=== PATIENT | male | born 1940 | race Hispanic/Latino ===

== ENCOUNTER 2016-08-26 10:10 | Emergency (ER) | payer MEDICAID, MEDICARE, OTHER ==
[~2016-08-26] VITALS: Ht 172.7 cm; Wt 72.6 kg
[~2016-08-26 10:10] MED LIST: AMLODIPINE BESYL5 MG GT; ARICEPT10 MG GT; ATORVASTATIN CA20 MG GT; CARBIDOPA-LEVO1 EAC3 GT; CARVEDILOL3.125 MG GT; CIPROFLOXACIN500 M2 ORAL; INSULIN REGULAR; LISINOPRIL2.5 MG GT; MULTI-DELYN237 ML GT; NAMENDA10 MG GT; ROPINIROLE HCL1 MG GT
[2016-08-26 10:24] VITALS: BP 123/80
--- NOTE | 2016-08-26 12:06 | Emergency Room Report ---
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 There is no knowledge of the size of the feeding tube A note regarding any fall or trauma patient himself is chronically debilitated and the history of present illness is significantly limited Allergies: Coded Allergies: No Known Allergies (Unverified , 04/04/14) Patient History Limited by: medical condition Past Medical History: see triage record Pertinent Family History: unable to obtain Reviewed Nursing Documentation: PMH: Agreed, PSxH: Agreed Nursing Documentation-PMH Past Medical History: No History, Except For Hx Cardiac Problems: Yes - chf,paralysis agitans,afib, bph Hx Hypertension: Yes Hx Diabetes: Yes Review of Systems All Other Systems: limited - Other than the ones mentioned in the history of present illness all others are reviewed however they do stay limited due to the patient's mental status Physical Exam Vital Signs Date Time Temp Pulse Resp B/P Pulse Ox O2 Delivery O2 Flow Rate FiO2 08/26/16 10:11 98.2 80 16 123/80 98 Room Air Sp02 EP Interpretation: reviewed, normal General Appearance: no apparent distress Head: normocephalic, atraumatic Eyes: bilateral eye PERRL ENT: normal pharynx Neck: supple Respiratory: lungs clear Cardiovascular #1: regular rate, rhythm, no edema Gastrointestinal: other - Stoma present mid abdomen, mild blood is noted at the site no obvious active bleeding no other fluctuance Musculoskeletal: other - Patient chronically debilitated now moving extremities Neurologic: responsive - to physical stimuli Skin: other - skin breakdown Medical Decision Making Diagnostic Impression: Primary Impression: Malfunction of gastrostomy tube Additional Impression: Encounter for feeding tube placement ER Course The area was cleansed 16 Argentine feeding tube was placed through the stoma without any resistance Was a small amount of blood that was wiped off No signs of any active bleeding Patient had balloon inflated and is tolerating procedure well At this time KUB gastrografin confirms placement and patient stable for discharge back Last Vital Signs Date Time Temp Pulse Resp B/P Pulse Ox O2 Delivery O2 Flow Rate FiO2 08/26/16 10:24 98.2 78 16 123/80 98 Room Air Status: improved Disposition: XFER SNF Condition: Improved Referrals: [facility],REFERRING (PCP) Additional Instructions: Patient is provided with the discharge instructions notified to follow up with primary doctor in the next 2-3 days otherwise return to the er with any worsening symptoms. Please note that this report is being documented using [employer] technology. This can lead to erroneous entry secondary to incorrect interpretation by the dictating instrument. EDGAR BATRES D.O. Aug 26, 2016 12:06
--- NOTE | 2016-08-26 13:21 | Diagnostic Imaging Report ---
Indication: Status post gastrostomy replacement Technique: Supine view of the abdomen after injection of water-soluble contrast into gastrostomy Comparison: none Findings: Contrast opacifies the stomach. No contrast extravasation is demonstrated. The bowel gas pattern is unremarkable. There is a right hip prosthesis Impression: Satisfactory position of gastrostomy tube
[2016-08-26 14:51] VITALS: BP 125/78
[2016-08-26 15:16] VITALS: BP 125/78
== END 2016-08-26 15:21 ==
LOC: EDBD 10:10 → EMR 11:38
DX: K94.23 Gastrostomy malfunction (principal); Y83.3 Surgical operation with formation of external stoma as the cause of abnormal reaction of the patient, or of later complication, without mention of misadventure at the time of the procedure; Y92.9 Unspecified place or not applicable; I10 Essential (primary) hypertension; E11.9 Type 2 diabetes mellitus without complications; I50.9 Heart failure, unspecified; E87.70 Fluid overload, unspecified; I48.91 Unspecified atrial fibrillation; N40.0 Benign prostatic hyperplasia without lower urinary tract symptoms
CPT/HCPCS: 43760; 74000; 99283; Q9963

== ENCOUNTER 2017-05-10 14:48 | Inpatient (IN) | payer MEDICARE, OTHER ==
[~2017-05-10] VITALS: Ht 165.1 cm; Wt 63.5 kg
--- NOTE | 2017-05-10 15:44 | Emergency Room Report ---
History of Present Illness General Chief Complaint: General Complaint Source: Medical Record Present Illness HPI History of present illness otherwise limited due to chronic debilitation Patient nonverbal at baseline Patient sent by SNF for infection at G-tube site Review of EMR shows previous visit here for malfunctioning G-tube, size 16 Irish was placed previously No further information from SNF No family members bedside Allergies: Coded Allergies: No Known Allergies (Unverified , 04/04/14) Patient History Past Medical History: see triage record, old chart reviewed Past Surgical History: unable to obtain Pertinent Family History: unable to obtain Social History: Denies: smoking, alcohol use, drug use Immunizations: UTD Reviewed Nursing Documentation: PMH: Agreed, PSxH: Agreed Nursing Documentation-PMH Past Medical History: No History, Except For Hx Cardiac Problems: Yes - chf,paralysis agitans,afib, bph Hx Hypertension: Yes Hx Diabetes: Yes Review of Systems All Other Systems: limited - nonverbal Physical Exam Vital Signs Date Time Temp Pulse Resp B/P (MAP) Pulse Ox O2 Delivery O2 Flow Rate FiO2 05/10/17 14:44 98.1 88 30 145/65 98 Nasal Cannula 2.0 Sp02 EP Interpretation: reviewed, normal General Appearance: normal inspection, well appearing, no apparent distress, alert, non-toxic, other - eyes shut tight Head: normocephalic, atraumatic Eyes: bilateral eye PERRL, bilateral eye EOMI ENT: normal ENT inspection, hearing grossly normal, normal pharynx, no angioedema, normal voice, TMs + canals normal, uvula midline, moist mucus membranes Neck: normal inspection, full range of motion, supple, thyroid normal, no meningismus, no bony tend Respiratory: normal inspection, lungs clear, normal breath sounds, no rhonchi, no respiratory distress, no retraction, no accessory muscle use, no wheezing, speaking full sentences Cardiovascular #1: regular rate, rhythm, no edema, no JVD, normal capillary refill Gastrointestinal: normal inspection, normal bowel sounds, non tender, soft, no mass, no peritonitis, non-distended, no guarding, no hernia, no pulsatile mass, other - non peritoneal. Gtube in place at 4cm. Mild erythema around stoma site. No bleeding noted at site or in tube. 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 I attest that this information is true, accurate and complete to the best of my knowledge. I understand that any falsification, omission, or concealment of material fact may subject me to administrative, civil, or criminal liability. This patient warrants hospital admission for extreme of age and has a condition that cannot be treated as outpatient. Diagnostic Impression: Primary Impression: G-tube site cellulitis ER Course gtube verified by KUB Labs: no leukocytosis, H&H stable, no other major metabolic abnormalities empiric antibiotics given for G-tube site cellulitis Endorsed to Dr. Beltrán for [facility] admission covering for Dr Lawrence 530pm Rhythm Strip Diag. Results EP Interpretation: yes Rate: 95 Rhythm: NSR, no PVC's, no ectopy Other X-Ray Diagnostic Results Other X-Ray Diagnostic Results : X-Ray ordered: KUB # of Views/Limited Vs Complete: 1 View Indication: Other - Gtube EP Interpretation: Yes Interpretation: nonspecific bowel gas, other - Gtube in place Electronically Signed by: Dr Kimmie Shoemaker MD Last Vital Signs Date Time Temp Pulse Resp B/P (MAP) Pulse Ox O2 Delivery O2 Flow Rate FiO2 05/10/17 14:44 98.1 88 30 145/65 98 Nasal Cannula 2.0 Status: improved Disposition: ADMITTED INPATIENT Condition: Serious KIMMIE SHOEMAKER M.D. May 10, 2017 15:44
[2017-05-10] MEDS ORDERED: Piperacillin/Tazobactam 3.375 GM in NS 55 ML IVPB ONE (15:45)
[2017-05-10] MEDS ORDERED: Zosyn 3.375gm inj ONE (16:29)
[2017-05-10 16:30] LABS: BASOPHILS % (AUTO) 0.6 % (0.0-2.0); EOSINOPHILS % (AUTO) 2.3 % (0.0-3.0); LYMPHOCYTES % (AUTO) 16.5 % (20.0-45.0); MEAN CORPUSCULAR HEMOGLOBIN 29.8 PG (27.0-31.0); MEAN CORPUSCULAR HGB CONC 31.8 G/DL (32.0-36.0); MEAN CORPUSCULAR VOLUME 93 FL (80-99); MEAN PLATELET VOLUME 8.7 FL (6.5-10.1); MONOCYTES % (AUTO) 10.7 % (1.0-10.0); NEUTROPHILS % (AUTO) 69.9 % (45.0-75.0); PLATELET COUNT 182 K/UL (150-450); RED BLOOD COUNT 4.88 M/UL (4.70-6.10); RED CELL DISTRIBUTION WIDTH 11.2 % (11.6-14.8); WHITE BLOOD COUNT 9.3 K/UL (4.8-10.8)
[2017-05-10 16:38] LABS: ANION GAP 3 mmol/L (5-15); CARBON DIOXIDE 32 MMOL/L (21-32); CHLORIDE 106 MMOL/L (98-107); CREATININE 0.5 MG/DL (0.55-1.30); POTASSIUM 4.3 MMOL/L (3.5-5.1); SODIUM 141 MMOL/L (136-145)
[2017-05-10 16:47] VITALS: BP 140/99
[2017-05-10 16:49] LABS: ALANINE AMINOTRANSFERASE 8 U/L (12-78); ALBUMIN/GLOBULIN RATIO 0.7 (1.0-2.7); ASPARTATE AMINO TRANSFERASE 17 U/L (15-37); LIPASE 119 U/L (73-393); TOTAL PROTEIN 6.9 G/DL (6.4-8.2)
[2017-05-10 16:51] LABS: BILIRUBIN,DIRECT 0.2 MG/DL (0.0-0.3)
[2017-05-10 18:00] VITALS: BP 121/73
[2017-05-10] MEDS ORDERED: ASPIRIN81 MG GT (18:39)
[2017-05-10] MEDS ORDERED: ATORVASTATIN CA10 MG GT (18:39)
[2017-05-10] MEDS ORDERED: CARVEDILOL3.125 MG GT (18:39)
[2017-05-10] MEDS ORDERED: ACIDOPHILUS LA1 EAC1 GT (18:39)
[2017-05-10] MEDS ORDERED: DONEPEZIL HCL10 MG GT (18:39)
[2017-05-10] MEDS ORDERED: DIGOXIN125 MCG GT (18:39)
[2017-05-10] MEDS ORDERED: METFORMIN HCL500 M1 GT (18:39)
[2017-05-10] MEDS ORDERED: ASPIRIN81 MG ORAL (18:39)
[2017-05-10 20:00] VITALS: BP 116/77
--- NOTE | 2017-05-10 20:18 | Consultation ---
History of Present Illness General Date patient seen: May 10, 2017 Chief Complaint: General Complaint Reason for Consultation: malfunctioning g tube / g tube site cellulitis Present Illness HPI 77M with multiple medical comorbidities currently in nursing facility was noted to have erythema and drainage around g tube so was transferred for evaluation. In ED noted to have erythema around tube site with some drainage. Surgery called to evaluate. KUB with contrast done and tube in proper position. contrast into stomach then small bowel. labs reviewed, EMR reviewed, patient examined. patient awake but does not converse at baseline. Allergies: Coded Allergies: No Known Allergies (Unverified , 04/04/14) Medication History Scheduled Aspirin* (Aspirin*), 81 MG GT DAILY, (Reported) Atorvastatin Calcium* (Lipitor*), 10 MG GT BEDTIME, (Reported) Carbidopa/Levodopa (Carbidopa-Levodopa 25-250 Tab), 1 EACH GT TID, (Reported) Carvedilol* (Carvedilol*), 3.125 MG GT EVERY 12 HOURS, (Reported) Digoxin* (Digoxin*), 125 MCG GT DAILY, (Reported) Donepezil Hcl* (Aricept*), 10 MG GT QHS, (Reported) Lactobacillus Acidophilus (Acidophilus Lactobacillus), 1 TAB GT DAILY, (Reported ) Metformin Hcl* (Metformin Hcl*), 500 MG GT TWICE A DAY, (Reported) Discontinued Medications Amlodipine Besylate* (Amlodipine Besylate*), 5 MG GT DAILY, (Reported) Discontinued Reason: Pt stopped taking med Atorvastatin Calcium* (Atorvastatin Calcium*), 5 MG GT BEDTIME, (Reported) Discontinued Reason: Medication dose changed Ciprofloxacin Hcl* (Ciprofloxacin Hcl*), 500 MG ORAL Q12H Discontinued Reason: Pt stopped taking med Lisinopril* (Lisinopril*), 5 MG GT BID, (Reported) Discontinued Reason: Pt stopped taking med Memantine Hcl* (Namenda*), 10 MG GT TWICE A DAY, (Reported) Discontinued Reason: Pt stopped taking med Multivitamin Liquid* (Multi-Delyn*), 5 ML GT DAILY, (Reported) Discontinued Reason: Pt stopped taking med Ropinirole Hcl* (Ropinirole Hcl*), 1 MG GT TID, (Reported) Discontinued Reason: Pt stopped taking med [insulin reg ss], (Reported) Discontinued Reason: Pt stopped taking med Patient History Limited by: medical condition History Provided By: Medical Record Healthcare decision maker Resuscitation status Advanced Directive on File Past Medical/Surgical History Past Medical/Surgical History: (1) Failure to thrive (2) Dehydration (3) UTI (lower urinary tract infection) (4) G-tube site cellulitis Review of Systems ROS Narrative cannot obtain given patients medical condition Physical Exam General Appearance: no apparent distress, alert Lines, tubes and drains: gtube HEENT: atraumatic, mucous membranes moist Neck: normal inspection Respiratory/Chest: normal breath sounds, no respiratory distress, no accessory muscle use Cardiovascular/Chest: normal peripheral pulses, normal rate Abdomen: normal bowel sounds, non tender, soft, no organomegaly, no mass, other - g tube site with erythema. mild serosang oozing around insertion site but otherwise okay. no purulent drainage. no edema. no induration. no fluctuance. tube at 3-4 on insertion. seems to be developing skin breakdown around tube. Extremities: normal inspection Skin Exam: warm/dry Neurologic: unresponsiveness Last 24 Hour Vital Signs Date Time Temp Pulse Resp B/P (MAP) Pulse Ox O2 Delivery O2 Flow Rate FiO2 05/10/17 19:31 99.3 96 24 121/73 98 Nasal Cannula 2.0 05/10/17 18:00 99.3 96 24 121/73 98 Nasal Cannula 2.0 05/10/17 16:47 99.9 95 30 140/99 98 Nasal Cannula 2.0 05/10/17 14:44 98.1 88 30 145/65 98 Nasal Cannula 2.0 Intake and Output 05/10/17 05/11/17 19:00 07:00 Intake Total 55 ml Balance 55 ml Intake Oral 0 ml IV Total 55 ml Laboratory Tests Test 05/10/17 15:45 White Blood Count 9.3 K/UL (4.8-10.8) Red Blood Count 4.88 M/UL (4.70-6.10) Hemoglobin 14.5 G/DL (14.2-18.0) Hematocrit 45.6 % (42.0-52.0) Mean Corpuscular Volume 93 FL (80-99) Mean Corpuscular Hemoglobin 29.8 PG (27.0-31.0) Mean Corpuscular Hemoglobin Concent 31.8 G/DL (32.0-36.0) L Red Cell Distribution Width 11.2 % (11.6-14.8) L Platelet Count 182 K/UL (150-450) Mean Platelet Volume 8.7 FL (6.5-10.1) Neutrophils (%) (Auto) 69.9 % (45.0-75.0) Lymphocytes (%) (Auto) 16.5 % (20.0-45.0) L Monocytes (%) (Auto) 10.7 % (1.0-10.0) H Eosinophils (%) (Auto) 2.3 % (0.0-3.0) Basophils (%) (Auto) 0.6 % (0.0-2.0) Sodium Level 141 MMOL/L (136-145) Potassium Level 4.3 MMOL/L (3.5-5.1) Chloride Level 106 MMOL/L (98-107) Carbon Dioxide Level 32 MMOL/L (21-32) Anion Gap 3 mmol/L (5-15) L Blood Urea Nitrogen 29 mg/dL (7-18) H Creatinine 0.5 MG/DL (0.55-1.30) L Estimat Glomerular Filtration Rate mL/min (>60) Glucose Level 182 MG/DL (74-106) H Calcium Level 9.0 MG/DL (8.5-10.1) Total Bilirubin 2.6 MG/DL (0.2-1.0) H Direct Bilirubin 0.2 MG/DL (0.0-0.3) Aspartate Amino Transf (AST/SGOT) 17 U/L (15-37) Alanine Aminotransferase (ALT/SGPT) 8 U/L (12-78) L Alkaline Phosphatase 72 U/L (46-116) Total Protein 6.9 G/DL (6.4-8.2) Albumin 2.9 G/DL (3.4-5.0) L Globulin 4.0 g/dL Albumin/Globulin Ratio 0.7 (1.0-2.7) L Lipase 119 U/L (73-393) Height (Feet): 5 Height (Inches): 6.00 Weight (Pounds): 140 Assessment/Plan Problem List: (1) G-tube site cellulitis Assessment & Plan: 77M with g tube site cellulitis. no abscess noted. irritation from g tube pressure noted. no active drainage but some mild serosang on dressings likely from recent manipulation. skin breakdown superficial around tube. keep site clean. wound care around g tube site with wound cleaning and gauze dressings. need to ensure tube not too tight against skin forming pressure ulcer okay to use tube from surgical standpoint. will await GI input. cont Abx thank you for this consultation. will follow with you. ICD Codes: K94.22 - Gastrostomy infection; L03.319 - Cellulitis of trunk, unspecified SNOMED: [id number], [id number] Status: stable Zeke Simon May 10, 2017 20:18
[2017-05-10] MEDS ORDERED: Acetaminophen 650 MG SUPP RECTAL PRN (22:15)
[2017-05-11] VITALS: BP 143/93
[2017-05-11 04:00] VITALS: BP 134/87
[2017-05-11 07:02] LABS: BASOPHILS % (AUTO) 1.2 % (0.0-2.0); EOSINOPHILS % (AUTO) 2.9 % (0.0-3.0); LYMPHOCYTES % (AUTO) 25.1 % (20.0-45.0); MEAN CORPUSCULAR HEMOGLOBIN 31.7 PG (27.0-31.0); MEAN CORPUSCULAR HGB CONC 33.2 G/DL (32.0-36.0); MEAN CORPUSCULAR VOLUME 96 FL (80-99); MEAN PLATELET VOLUME 9.6 FL (6.5-10.1); MONOCYTES % (AUTO) 10.4 % (1.0-10.0); NEUTROPHILS % (AUTO) 60.4 % (45.0-75.0); PLATELET COUNT 215 K/UL (150-450); RED BLOOD COUNT 4.78 M/UL (4.70-6.10); RED CELL DISTRIBUTION WIDTH 11.5 % (11.6-14.8); WHITE BLOOD COUNT 7.4 K/UL (4.8-10.8)
[2017-05-11 07:18] LABS: ANION GAP 4 mmol/L (5-15); CARBON DIOXIDE 33 MMOL/L (21-32); CHLORIDE 108 MMOL/L (98-107); CREATININE 0.5 MG/DL (0.55-1.30); POTASSIUM 5.1 MMOL/L (3.5-5.1); SODIUM 145 MMOL/L (136-145)
[2017-05-11 08:33] VITALS: BP 126/75
[2017-05-11] MEDS ORDERED: Silver Nitrate Stick TOPIC ONE (11:30)
[2017-05-11 11:33] VITALS: BP 132/82
--- NOTE | 2017-05-11 11:41 | GI Initial Consult Note ---
Jennifer Handley N.P. 05/11/17 1140: History of Present Illness General Date patient seen: May 11, 2017 Time patient seen: 11:35 Reason for Hospitalization: General Complaint Referring physician: EDGAR MCGEE Reason for Consultation: malfunctioning g tube / g tube site cellulitis Present Illness HPI History of present illness otherwise limited due to chronic debilitation Patient nonverbal at baseline Patient sent by SNF for infection at G-tube site Review of EMR shows previous visit here for malfunctioning G-tube, size 16 Arabic was placed previously No further information from SNF No family members bedside GI consulted for GT site bleed. HPI as noted above. Surgical consulted reviewed and noted. Pt seen on floor, awake awake NAD with no active s/sx of N/ V/D. GT site assessed to have active bleed with saturated gauze. GT site area noted with erythema and no skin breakdown. KUB reviewed to show GT site in proper position. Home Meds Reported Medications Digoxin* (DIGOXIN*) 125 Mcg Tablet, 125 MCG GT DAILY for HOLD IF HR < 60 05/10/17 Metformin Hcl* (METFORMIN HCL*) 500 Mg Tablet, 500 MG GT TWICE A DAY 05/10/17 Carvedilol* (CARVEDILOL*) 3.125 Mg Tablet, 3.125 MG GT EVERY 12 HOURS for HOLD IF SBP <100 OR HR<60 05/10/17 Atorvastatin Calcium* (LIPITOR*) 10 Mg Tablet, 10 MG GT BEDTIME 05/10/17 Lactobacillus Acidophilus (ACIDOPHILUS LACTOBACILLUS) 1 Each Capsule, 1 TAB GT DAILY 05/10/17 Aspirin* (ASPIRIN*) 81 Mg Tab.chew, 81 MG GT DAILY 05/10/17 Carbidopa/Levodopa (CARBIDOPA-LEVODOPA 25-250 TAB) 1 Each Tablet, 1 EACH GT TID , TAB 04/04/14 Donepezil Hcl* (ARICEPT*) 10 Mg Tablet, 10 MG GT QHS, TAB 04/04/14 Discontinued Reported Medications Ropinirole Hcl* (ROPINIROLE HCL*) 1 Mg Tablet, 1 MG GT TID, TAB 04/04/14 Atorvastatin Calcium* (ATORVASTATIN CALCIUM*) 20 Mg Tablet, 5 MG GT BEDTIME, TAB 04/04/14 Amlodipine Besylate* (AMLODIPINE BESYLATE*) 5 Mg Tablet, 5 MG GT DAILY, TAB 04/04/14 Lisinopril* (LISINOPRIL*) 2.5 Mg Tablet, 5 MG GT BID, TAB 0 Refills 04/04/14 Memantine Hcl* (NAMENDA*) 10 Mg Tablet, 10 MG GT TWICE A DAY, TAB 04/04/14 [insulin reg ss] No Conflict Check 04/04/14 Multivitamin Liquid* (MULTI-DELYN*) 237 Ml Liquid, 5 ML GT DAILY, ML 04/04/14 Discontinued Scripts Ciprofloxacin Hcl* (CIPROFLOXACIN HCL*) 500 Mg Tablet, 500 MG ORAL Q12H, #14 TAB Prov:PATTI DEGROOT M.D. 04/04/14 Med list reviewed/reconciled: Yes Allergies: Coded Allergies: No Known Allergies (Unverified , 04/04/14) Patient History PMH Narrative Past Medical History: see triage record, old chart reviewed Past Surgical History: unable to obtain Pertinent Family History: unable to obtain Social History: Denies: smoking, alcohol use, drug use Immunizations: UTD Reviewed Nursing Documentation: PMH: Agreed, PSxH: Agreed Nursing Documentation-PMH Past Medical History: No History, Except For Hx Cardiac Problems: Yes - chf,paralysis agitans,afib, bph Hx Hypertension: Yes Hx Diabetes: Yes Social History: Denies: smoking, alcohol use, drug use, other Review of Systems All Other Systems: limited Physical Exam Vital Signs Date Time Temp Pulse Resp B/P (MAP) Pulse Ox O2 Delivery O2 Flow Rate FiO2 05/10/17 14:44 98.1 88 30 145/65 98 Nasal Cannula 2.0 Sp02 EP Interpretation: reviewed, normal Labs Laboratory Tests Test 05/10/17 15:45 05/11/17 05:05 White Blood Count 9.3 K/UL (4.8-10.8) 7.4 K/UL (4.8-10.8) Red Blood Count 4.88 M/UL (4.70-6.10) 4.78 M/UL (4.70-6.10) Hemoglobin 14.5 G/DL (14.2-18.0) 15.2 G/DL (14.2-18.0) Hematocrit 45.6 % (42.0-52.0) 45.8 % (42.0-52.0) Mean Corpuscular Volume 93 FL (80-99) 96 FL (80-99) Mean Corpuscular Hemoglobin 29.8 PG (27.0-31.0) 31.7 PG (27.0-31.0) H Mean Corpuscular Hemoglobin Concent 31.8 G/DL (32.0-36.0) L 33.2 G/DL (32.0-36.0) Red Cell Distribution Width 11.2 % (11.6-14.8) L 11.5 % (11.6-14.8) L Platelet Count 182 K/UL (150-450) 215 K/UL (150-450) Mean Platelet Volume 8.7 FL (6.5-10.1) 9.6 FL (6.5-10.1) Neutrophils (%) (Auto) 69.9 % (45.0-75.0) 60.4 % (45.0-75.0) Lymphocytes (%) (Auto) 16.5 % (20.0-45.0) L 25.1 % (20.0-45.0) Monocytes (%) (Auto) 10.7 % (1.0-10.0) H 10.4 % (1.0-10.0) H Eosinophils (%) (Auto) 2.3 % (0.0-3.0) 2.9 % (0.0-3.0) Basophils (%) (Auto) 0.6 % (0.0-2.0) 1.2 % (0.0-2.0) Sodium Level 141 MMOL/L (136-145) 145 MMOL/L (136-145) Potassium Level 4.3 MMOL/L (3.5-5.1) 5.1 MMOL/L (3.5-5.1) Chloride Level 106 MMOL/L (98-107) 108 MMOL/L (98-107) H Carbon Dioxide Level 32 MMOL/L (21-32) 33 MMOL/L (21-32) H Anion Gap 3 mmol/L (5-15) L 4 mmol/L (5-15) L Blood Urea Nitrogen 29 mg/dL (7-18) H 28 mg/dL (7-18) H Creatinine 0.5 MG/DL (0.55-1.30) L 0.5 MG/DL (0.55-1.30) L Estimat Glomerular Filtration Rate mL/min (>60) mL/min (>60) Glucose Level 182 MG/DL (74-106) H 109 MG/DL (74-106) H Calcium Level 9.0 MG/DL (8.5-10.1) 9.0 MG/DL (8.5-10.1) Total Bilirubin 2.6 MG/DL (0.2-1.0) H Direct Bilirubin 0.2 MG/DL (0.0-0.3) Aspartate Amino Transf (AST/SGOT) 17 U/L (15-37) Alanine Aminotransferase (ALT/SGPT) 8 U/L (12-78) L Alkaline Phosphatase 72 U/L (46-116) Total Protein 6.9 G/DL (6.4-8.2) Albumin 2.9 G/DL (3.4-5.0) L Globulin 4.0 g/dL Albumin/Globulin Ratio 0.7 (1.0-2.7) L Lipase 119 U/L (73-393) General Appearance: well appearing, no apparent distress, alert Head: normocephalic EENT: PERRL/EOMI, normal ENT inspection Neck: supple Respiratory: normal breath sounds, no respiratory distress Cardiovascular: normal rate Gastrointestinal: normal inspection, non tender, soft, normal bowel sounds, non -distended, gt - active bleed around site with hypergranulation Rectal: deferred Genitourinary: deferred Musculoskeletal: normal inspection, back normal Neurologic: alert, responsive Skin: normal inspection, normal color, no rash, warm/dry, palpation normal, well hydrated Lymphatic: normal inspection, no adenopathy Current Medications Current Medications Medications (Trade) Dose Ordered Sig/Shahab Route PRN Reason Start Time Stop Time Status Last Admin Dose Admin Acetaminophen (Tylenol) 650 mg Q6HR PRN RECTAL Mild Pain/Temp > 100.5 05/10/17 22:15 06/09/17 22:14 Piperacillin Sod/ Tazobactam Sod 3.375 gm/Dextrose 55 ml @ 13.75 mls/ hr EVERY 8 HOURS IVPB 05/11/17 14:00 05/16/17 13:59 Sodium Chloride 1,000 ml @ 60 mls/hr [id number] IV 05/10/17 23:00 06/09/17 22:59 05/10/17 23:02 Vancomycin HCl (Vanco rx to dose) 1 ea DAILY PRN MISC Per rx protocol 05/11/17 11:00 06/10/17 10:59 Vancomycin HCl 1 gm/Dextrose 275 ml @ 183.708 mls/hr Q12H IVPB 05/11/17 12:00 05/16/17 11:59 GI: Plan Problems: (1) Failure to thrive (2) G-tube site cellulitis (3) Dehydration Plan KUB reviewed >> GT in good position GT site area cauterized with silver nitrate sticks (2 used) GT site care daily/prn, keep area dry okay to start GTFs per dietary bowel regime follow labs Discussed with Dr. Miller. Thank you for this patient referral, we will follow. ROSE MILLER 05/11/17 1248: History of Present Illness General Reason for Hospitalization: General Complaint Present Illness Home Meds Reported Medications Digoxin* (DIGOXIN*) 125 Mcg Tablet, 125 MCG GT DAILY for HOLD IF HR < 60 05/10/17 Metformin Hcl* (METFORMIN HCL*) 500 Mg Tablet, 500 MG GT TWICE A DAY 05/10/17 Carvedilol* (CARVEDILOL*) 3.125 Mg Tablet, 3.125 MG GT EVERY 12 HOURS for HOLD IF SBP <100 OR HR<60 05/10/17 Atorvastatin Calcium* (LIPITOR*) 10 Mg Tablet, 10 MG GT BEDTIME 05/10/17 Lactobacillus Acidophilus (ACIDOPHILUS LACTOBACILLUS) 1 Each Capsule, 1 TAB GT DAILY 05/10/17 Aspirin* (ASPIRIN*) 81 Mg Tab.chew, 81 MG GT DAILY 05/10/17 Carbidopa/Levodopa (CARBIDOPA-LEVODOPA 25-250 TAB) 1 Each Tablet, 1 EACH GT TID , TAB 04/04/14 Donepezil Hcl* (ARICEPT*) 10 Mg Tablet, 10 MG GT QHS, TAB 04/04/14 Discontinued Reported Medications Ropinirole Hcl* (ROPINIROLE HCL*) 1 Mg Tablet, 1 MG GT TID, TAB 04/04/14 Atorvastatin Calcium* (ATORVASTATIN CALCIUM*) 20 Mg Tablet, 5 MG GT BEDTIME, TAB 04/04/14 Amlodipine Besylate* (AMLODIPINE BESYLATE*) 5 Mg Tablet, 5 MG GT DAILY, TAB 04/04/14 Lisinopril* (LISINOPRIL*) 2.5 Mg Tablet, 5 MG GT BID, TAB 0 Refills 04/04/14 Memantine Hcl* (NAMENDA*) 10 Mg Tablet, 10 MG GT TWICE A DAY, TAB 04/04/14 [insulin reg ss] No Conflict Check 04/04/14 Multivitamin Liquid* (MULTI-DELYN*) 237 Ml Liquid, 5 ML GT DAILY, ML 04/04/14 Discontinued Scripts Ciprofloxacin Hcl* (CIPROFLOXACIN HCL*) 500 Mg Tablet, 500 MG ORAL Q12H, #14 TAB Prov:PATTI DEGROOT M.D. 04/04/14 Allergies: Coded Allergies: No Known Allergies (Unverified , 04/04/14) GI: Plan Plan The patient was seen and examined at bedside and all new and available data was reviewed in the patients chart. I agree with the above findings, impression and plan. (Patient seen earlier today. Signature stamp does not reflect patient encounter time.). - MD Emmanuelle NormanDignity Health [facility] Meet N.PGinger May 11, 2017 11:40 ROSE MILLER May 11, 2017 12:48
--- NOTE | 2017-05-11 11:45 | Diagnostic Imaging Report ---
Indication: Reason For Exam: TUBE PLCMT Technique: Supine view of the abdomen after injection of water-soluble contrast into gastrostomy Comparison: 08/26/2016 Findings: Contrast opacifies the stomach. No contrast extravasation is demonstrated. The bowel gas pattern is unremarkable. There is a right hip prosthesis. Considerable stool is seen within the rectum, unchanged Impression: Satisfactory position of gastrostomy tube
[2017-05-11] MEDS: Vancomycin 1gm in D5W 275ml IVPB SCH (12:32)
[2017-05-11] MEDS: Piperacillin/Tazobactam 3.375 GM in D5W 55 ML IVPB SCH ×2 (14:30→21:30)
[2017-05-11 15:55] VITALS: BP 137/79
--- NOTE | 2017-05-11 16:15 | Consultation ---
DATE OF CONSULTATION: 05/10/2017 INFECTIOUS DISEASE CONSULTATION CONSULTING PHYSICIAN: Doroteo Jones M.D. PRIMARY ATTENDING PHYSICIAN: Robert Lawrence D.O. REASON FOR CONSULT: Gastrostomy site infection. HISTORY OF PRESENT ILLNESS: The patient is a 77-year-old male admitted today from a detention facility because of bleeding and discharge from gastrostomy site. The patient also had erythema around G-tube site. He is not a source of history. He had no fever and leukocytosis. PAST MEDICAL HISTORY: Significant for Parkinson disease, dementia, atrial fibrillation, diabetes mellitus, and hypertension. PAST SURGICAL HISTORY: G-tube placement. MEDICATIONS: Sodium chloride and Tylenol. Per the nursing facility, getting Aricept and Sinemet. ALLERGIES: No known drug allergies. SOCIAL HISTORY: half-way resident. Single. . No other history obtainable by the patient. PHYSICAL EXAMINATION: VITAL SIGNS: Temperature 97.5, pulse 99, and blood pressure 126/75. GENERAL APPEARANCE: No acute distress. Nonverbal. HEAD AND NECK: Deloit conjunctiva. HEART: Tachycardic. LUNGS: Clear. ABDOMEN: Soft. Fresh blood around G-tube site. Erythema around G-tube site. EXTREMITIES: Has no edema. NEUROLOGIC: Has rigidity and tremor. Aphasic. LABORATORY DATA: Sodium 145, potassium 5.1, chloride 108, bicarbonate 33, BUN 28, creatinine 0.5, and glucose is 109. WBC 7.4, hemoglobin 15.2, hematocrit 45.8, platelets is 215,000. Chest x-ray was negative, but this chest x-ray is old. IMPRESSION: A gastrostomy site infection and bleeding. The patient has diabetes mellitus according to the notes and hypertension, Parkinson disease, and dementia. RECOMMENDATIONS: We will start intravenous vancomycin and Zosyn. We will obtain wound culture. We will follow up the laboratories. At the end of my exam, I thank, Dr. Robert Lawrence, for involving me in the care of this patient. Doroteo Jones M.D. DR: LAWRENCE JOB#: [id number] CC:
--- NOTE | 2017-05-11 16:38 | General Surgery Progress Note ---
General Surgery-Progress Note Subjective Symptoms: improved Additional Comments stable. unchanged. Objective Last 24 Hour Vital Signs Date Time Temp Pulse Resp B/P (MAP) Pulse Ox O2 Delivery O2 Flow Rate FiO2 05/11/17 15:55 98.1 69 18 137/79 98 05/11/17 11:33 97.7 109 21 132/82 98 05/11/17 08:33 97.5 99 20 126/75 99 05/11/17 04:00 97.9 81 20 134/87 100 05/11/17 04:00 Nasal Cannula 2.0 05/11/17 00:00 98.1 96 18 143/93 97 Nasal Cannula 05/11/17 00:00 Nasal Cannula 2.0 05/10/17 20:00 98.1 93 21 116/77 98 Nasal Cannula 05/10/17 19:31 99.3 96 24 121/73 98 Nasal Cannula 2.0 05/10/17 18:00 99.3 96 24 121/73 98 Nasal Cannula 2.0 05/10/17 16:47 99.9 95 30 140/99 98 Nasal Cannula 2.0 I&O Intake and Output 05/10/17 05/11/17 19:00 07:00 Intake Total 55 ml 420 ml Balance 55 ml 420 ml Intake Oral 0 ml IV Total 55 ml 420 ml # Voids 2 # Bowel Movements 1 Dressing: dry Wound: clean Drains: other - g tube Cardiovascular: RSR Respiratory: clear Abdomen: soft, flat, present bowel sounds Extremities: no tenderness Laboratory Tests Test 05/11/17 05:05 White Blood Count 7.4 K/UL (4.8-10.8) Red Blood Count 4.78 M/UL (4.70-6.10) Hemoglobin 15.2 G/DL (14.2-18.0) Hematocrit 45.8 % (42.0-52.0) Mean Corpuscular Volume 96 FL (80-99) Mean Corpuscular Hemoglobin 31.7 PG (27.0-31.0) H Mean Corpuscular Hemoglobin Concent 33.2 G/DL (32.0-36.0) Red Cell Distribution Width 11.5 % (11.6-14.8) L Platelet Count 215 K/UL (150-450) Mean Platelet Volume 9.6 FL (6.5-10.1) Neutrophils (%) (Auto) 60.4 % (45.0-75.0) Lymphocytes (%) (Auto) 25.1 % (20.0-45.0) Monocytes (%) (Auto) 10.4 % (1.0-10.0) H Eosinophils (%) (Auto) 2.9 % (0.0-3.0) Basophils (%) (Auto) 1.2 % (0.0-2.0) Sodium Level 145 MMOL/L (136-145) Potassium Level 5.1 MMOL/L (3.5-5.1) Chloride Level 108 MMOL/L (98-107) H Carbon Dioxide Level 33 MMOL/L (21-32) H Anion Gap 4 mmol/L (5-15) L Blood Urea Nitrogen 28 mg/dL (7-18) H Creatinine 0.5 MG/DL (0.55-1.30) L Estimat Glomerular Filtration Rate mL/min (>60) Glucose Level 109 MG/DL (74-106) H Calcium Level 9.0 MG/DL (8.5-10.1) Plan Problems: (1) G-tube site cellulitis Assessment & Plan: 77M with g tube site cellulitis. no abscess noted. irritation from g tube pressure noted. no active drainage but some mild serosang on dressings likely from recent manipulation. GI note reviewed. had bleeding earlier again and required cauterization. since clean and dry. erythema improved since pressure removed. keep site clean. wound care around g tube site with wound cleaning and gauze dressings. need to ensure tube not too tight against skin forming pressure ulcer okay to use tube from surgical standpoint. appreciate GI input thank you for this consultation. will follow with you. Zeke Simon May 11, 2017 16:38
[2017-05-11 20:00] VITALS: BP 135/71
[2017-05-11] MEDS: Miralax 17gm pkt ORAL SCH (21:30)
[2017-05-12] VITALS: BP 107/71
[2017-05-12] MEDS: Vancomycin 1gm in D5W 275ml IVPB SCH ×3 (00:14→23:58)
[2017-05-12 03:26] VITALS: BP 125/82
--- NOTE | 2017-05-12 05:45 | History and Physical Report ---
DATE OF ADMISSION: 05/10/[address] Robert Lawrence's patient. I am covering Dr. Robert Lawrence. HISTORY OF PRESENT ILLNESS: The patient is here because of G-tube site cellulitis and also mild blood coming out around the G-tube per nursing staff. The patient is a poor historian and cannot get a reliable history from the patient. Nonverbal. He also has some tremors and somewhat lethargic. The patient is admitted for gastric site tube cellulitis and bleeding. PAST MEDICAL HISTORY: Dementia, dehydration, history of hypertension, arrhythmia, advanced dementia, NIDDM, hyperlipidemia, and Parkinson disease. PAST SURGICAL HISTORY: G-tube. ALLERGIES: No known allergies. MEDICATIONS: Lipitor, Sinemet, Coreg, digoxin, benazepril, and metformin. FAMILY HISTORY: Unable to obtain. SOCIAL HISTORY: Unable to obtain. REVIEW OF SYSTEMS: Unable to obtain. PHYSICAL EXAMINATION: VITAL SIGNS: Temperature is 98.1, pulse is 93, and blood pressure 116/77. HEENT: PERRLA. NECK: Supple. No lymphadenopathy. CHEST: Clear to auscultation. GASTROINTESTINAL: Soft and nontender. There is erythema and tenderness around the G-tube site. EXTREMITIES: No edema. NEUROLOGIC: Does not follow neurological exam. Opens eyes to noxious stimuli and nonverbal. LABORATORY DATA: WBC of 9.3, hemoglobin 14.5, and platelets of 182,000. Sodium 141, potassium 4.3. BUN 29, creatinine 0.5, and glucose of 182. ASSESSMENT AND PLAN: Gastrostomy tube site cellulitis and bleeding. I have asked Dr. Stevenson, Dr. Tate, and to see if the patient will need any surgical debridement versus just a local antibiotic treatment. Jama Figueroa M.D. DR: WILI JOB#: [id number] CC:
[2017-05-12] MEDS: Piperacillin/Tazobactam 3.375 GM in D5W 55 ML IVPB SCH ×3 (06:21→20:59)
[2017-05-12 07:03] LABS: BASOPHILS % (AUTO) 0.7 % (0.0-2.0); EOSINOPHILS % (AUTO) 2.5 % (0.0-3.0); LYMPHOCYTES % (AUTO) 24.5 % (20.0-45.0); MEAN CORPUSCULAR HEMOGLOBIN 32.3 PG (27.0-31.0); MEAN CORPUSCULAR VOLUME 95 FL (80-99); MEAN PLATELET VOLUME 8.8 FL (6.5-10.1); MONOCYTES % (AUTO) 12.7 % (1.0-10.0); NEUTROPHILS % (AUTO) 59.6 % (45.0-75.0); PLATELET COUNT 221 K/UL (150-450); RED BLOOD COUNT 4.07 M/UL (4.70-6.10); RED CELL DISTRIBUTION WIDTH 11.1 % (11.6-14.8); WHITE BLOOD COUNT 7.4 K/UL (4.8-10.8)
[2017-05-12 07:57] LABS: ALANINE AMINOTRANSFERASE 15 U/L (12-78); ALBUMIN/GLOBULIN RATIO 0.8 (1.0-2.7); ANION GAP 10 mmol/L (5-15); ASPARTATE AMINO TRANSFERASE 16 U/L (15-37); CALCIUM 8.6 MG/DL (8.5-10.1); CARBON DIOXIDE 30 MMOL/L (21-32); CHLORIDE 103 MMOL/L (98-107); CREATININE 0.6 MG/DL (0.55-1.30); PHOSPHORUS 3.4 MG/DL (2.5-4.9); SODIUM 143 MMOL/L (136-145); TOTAL PROTEIN 6.3 G/DL (6.4-8.2)
[2017-05-12 08:00] VITALS: BP 113/63
[2017-05-12 10:21] LABS: BILIRUBIN,DIRECT 0.6 MG/DL (0.0-0.3)
--- NOTE | 2017-05-12 10:51 | Infectious Diseases Prog Note ---
Assessment/Plan Assessment/Plan A; GT site infection Abdominal wall cellulitis DM Parkinson's disease Dementia P: Continue Zosyn & Vancomycin Will f/u cultures Subjective ROS Limited/Unobtainable: Yes Allergies: Coded Allergies: No Known Allergies (Unverified , 04/04/14) Objective Vital Signs Last 24 Hour Vital Signs Date Time Temp Pulse Resp B/P (MAP) Pulse Ox O2 Delivery O2 Flow Rate FiO2 05/12/17 08:00 97.3 78 20 113/63 99 05/12/17 04:00 Nasal Cannula 2.0 05/12/17 03:26 97.5 77 20 125/82 99 Nasal Cannula 05/12/17 00:00 Nasal Cannula 2.0 05/12/17 00:00 97.9 112 18 107/71 98 05/11/17 20:00 98.6 108 18 135/71 99 05/11/17 20:00 Nasal Cannula 2.0 05/11/17 15:55 98.1 69 18 137/79 98 05/11/17 11:33 97.7 109 21 132/82 98 Height (Feet): 5 Height (Inches): 5.00 Weight (Pounds): 140 General Appearance: no acute distress HEENT: mucous membranes moist Respiratory/Chest: lungs clear Cardiovascular: normal rate Abdomen: soft, non tender, other - GT feeding Extremities: no edema, other Skin: other - erythema of abdominal wall near GT Neurologic/Psychiatric: alert, aphasia Microbiology Date/Time Source Procedure Growth Status 05/10/17 18:25 Nasal Nares MRSA Culture - Final NO METHICILLIN RESISTANT STAPH AUREUS... Complete 05/10/17 18:25 Rectum VRE Culture - Final NO VANCOMYCIN RESISTANT ENTEROCOCCUS ... Complete Laboratory Tests Test 05/12/17 04:50 White Blood Count 7.4 K/UL (4.8-10.8) Red Blood Count 4.07 M/UL (4.70-6.10) L Hemoglobin 13.1 G/DL (14.2-18.0) L Hematocrit 38.6 % (42.0-52.0) L Mean Corpuscular Volume 95 FL (80-99) Mean Corpuscular Hemoglobin 32.3 PG (27.0-31.0) H Mean Corpuscular Hemoglobin Concent 34.0 G/DL (32.0-36.0) Red Cell Distribution Width 11.1 % (11.6-14.8) L Platelet Count 221 K/UL (150-450) Mean Platelet Volume 8.8 FL (6.5-10.1) Neutrophils (%) (Auto) 59.6 % (45.0-75.0) Lymphocytes (%) (Auto) 24.5 % (20.0-45.0) Monocytes (%) (Auto) 12.7 % (1.0-10.0) H Eosinophils (%) (Auto) 2.5 % (0.0-3.0) Basophils (%) (Auto) 0.7 % (0.0-2.0) Sodium Level 143 MMOL/L (136-145) Potassium Level 4.0 MMOL/L (3.5-5.1) Chloride Level 103 MMOL/L (98-107) Carbon Dioxide Level 30 MMOL/L (21-32) Anion Gap 10 mmol/L (5-15) Blood Urea Nitrogen 25 mg/dL (7-18) H Creatinine 0.6 MG/DL (0.55-1.30) Estimat Glomerular Filtration Rate mL/min (>60) Glucose Level 158 MG/DL (74-106) H Calcium Level 8.6 MG/DL (8.5-10.1) Phosphorus Level 3.4 MG/DL (2.5-4.9) Magnesium Level 2.0 MG/DL (1.8-2.4) Total Bilirubin 2.5 MG/DL (0.2-1.0) H Direct Bilirubin 0.6 MG/DL (0.0-0.3) H Aspartate Amino Transf (AST/SGOT) 16 U/L (15-37) Alanine Aminotransferase (ALT/SGPT) 15 U/L (12-78) Alkaline Phosphatase 67 U/L (46-116) Total Protein 6.3 G/DL (6.4-8.2) L Albumin 2.7 G/DL (3.4-5.0) L Globulin 3.6 g/dL Albumin/Globulin Ratio 0.8 (1.0-2.7) L Current Medications Medications (Trade) Dose Ordered Sig/Shahab Route PRN Reason Start Time Stop Time Status Last Admin Dose Admin Acetaminophen (Tylenol) 650 mg Q6HR PRN RECTAL Mild Pain/Temp > 100.5 05/10/17 22:15 06/09/17 22:14 Piperacillin Sod/ Tazobactam Sod 3.375 gm/Dextrose 55 ml @ 13.75 mls/ hr EVERY 8 HOURS IVPB 05/11/17 14:00 05/16/17 13:59 05/12/17 06:21 Polyethylene Glycol (Miralax) 17 gm BEDTIME ORAL 05/11/17 21:00 06/10/17 20:59 05/11/17 21:30 Sodium Chloride 1,000 ml @ 60 mls/hr [id number] IV 05/10/17 23:00 06/09/17 22:59 05/12/17 08:54 Vancomycin HCl (Vanco rx to dose) 1 ea DAILY PRN MISC Per rx protocol 05/11/17 11:00 06/10/17 10:59 Vancomycin HCl 1 gm/Dextrose 275 ml @ 183.708 mls/hr Q12H IVPB 05/11/17 12:00 05/16/17 11:59 05/12/17 00:14 NURIA HANLEY May 12, 2017 10:51
--- NOTE | 2017-05-12 11:41 | GI Progress Note ---
Assessment/Plan Problems: (1) G-tube site cellulitis ICD Codes: K94.22 - Gastrostomy infection; L03.319 - Cellulitis of trunk, unspecified SNOMED: 703648202, 569410942 (2) Failure to thrive ICD Codes: R62.51 - Failure to thrive (child) SNOMED: 08381405 (3) Dehydration ICD Codes: E86.0 - Dehydration SNOMED: 98560402 Status: stable Status Narrative Discussed with Dr. Stevenson. Assessment/Plan KUB reviewed >> GT in good position GT site area cauterized with silver nitrate sticks >> GT site bleeding resolved GT site care daily/prn, keep area dry GTFs per RD bowel regime follow labs The patient was seen and examined at bedside and all new and available data was reviewed in the patients chart. I agree with the above findings, impression and plan. (Patient seen earlier today. Signature stamp does not reflect patient encounter time.). - Natalia Stevenson MD Subjective Subjective limited Objective Last 24 Hour Vital Signs Date Time Temp Pulse Resp B/P (MAP) Pulse Ox O2 Delivery O2 Flow Rate FiO2 05/12/17 08:00 97.3 78 20 113/63 99 05/12/17 04:00 Nasal Cannula 2.0 05/12/17 03:26 97.5 77 20 125/82 99 Nasal Cannula 05/12/17 00:00 Nasal Cannula 2.0 05/12/17 00:00 97.9 112 18 107/71 98 05/11/17 20:00 98.6 108 18 135/71 99 05/11/17 20:00 Nasal Cannula 2.0 05/11/17 15:55 98.1 69 18 137/79 98 Intake and Output 05/11/17 05/12/17 19:00 07:00 Intake Total 804.916 ml 1190.000 ml Output Total 400 ml Balance 404.916 ml 1190.000 ml Intake Oral 0 ml Free Water 30 ml 60 ml IV Total 694.916 ml 750.000 ml Tube Feeding 80 ml 380 ml Output Urine Total 400 ml # Voids 2 2 # Bowel Movements 2 1 Laboratory Tests Test 05/12/17 04:50 White Blood Count 7.4 K/UL (4.8-10.8) Red Blood Count 4.07 M/UL (4.70-6.10) L Hemoglobin 13.1 G/DL (14.2-18.0) L Hematocrit 38.6 % (42.0-52.0) L Mean Corpuscular Volume 95 FL (80-99) Mean Corpuscular Hemoglobin 32.3 PG (27.0-31.0) H Mean Corpuscular Hemoglobin Concent 34.0 G/DL (32.0-36.0) Red Cell Distribution Width 11.1 % (11.6-14.8) L Platelet Count 221 K/UL (150-450) Mean Platelet Volume 8.8 FL (6.5-10.1) Neutrophils (%) (Auto) 59.6 % (45.0-75.0) Lymphocytes (%) (Auto) 24.5 % (20.0-45.0) Monocytes (%) (Auto) 12.7 % (1.0-10.0) H Eosinophils (%) (Auto) 2.5 % (0.0-3.0) Basophils (%) (Auto) 0.7 % (0.0-2.0) Sodium Level 143 MMOL/L (136-145) Potassium Level 4.0 MMOL/L (3.5-5.1) Chloride Level 103 MMOL/L (98-107) Carbon Dioxide Level 30 MMOL/L (21-32) Anion Gap 10 mmol/L (5-15) Blood Urea Nitrogen 25 mg/dL (7-18) H Creatinine 0.6 MG/DL (0.55-1.30) Estimat Glomerular Filtration Rate mL/min (>60) Glucose Level 158 MG/DL (74-106) H Calcium Level 8.6 MG/DL (8.5-10.1) Phosphorus Level 3.4 MG/DL (2.5-4.9) Magnesium Level 2.0 MG/DL (1.8-2.4) Total Bilirubin 2.5 MG/DL (0.2-1.0) H Direct Bilirubin 0.6 MG/DL (0.0-0.3) H Aspartate Amino Transf (AST/SGOT) 16 U/L (15-37) Alanine Aminotransferase (ALT/SGPT) 15 U/L (12-78) Alkaline Phosphatase 67 U/L (46-116) Total Protein 6.3 G/DL (6.4-8.2) L Albumin 2.7 G/DL (3.4-5.0) L Globulin 3.6 g/dL Albumin/Globulin Ratio 0.8 (1.0-2.7) L Height (Feet): 5 Height (Inches): 5.00 Weight (Pounds): 140 General Appearance: WD/WN, no apparent distress, alert Cardiovascular: normal rate Respiratory/Chest: normal breath sounds, no respiratory distress Abdominal Exam: normal bowel sounds, non tender, soft, GT site - no bleednig noted Extremities: non-tender Jennifer Handley N.Josh May 12, 2017 11:41 ROSE STEVENSON May 13, 2017 09:18
[2017-05-12] MEDS: Aspirin Baby 81mg GT SCH (11:44)
[2017-05-12] MEDS: Digoxin 0.125mg tab GT SCH (11:44)
[2017-05-12 12:00] VITALS: BP 135/87
[2017-05-12] MEDS ORDERED: Surgicel 4in x 8in TOPIC ONE (12:30)
--- NOTE | 2017-05-12 12:36 | General Surgery Progress Note ---
General Surgery-Progress Note Subjective Symptoms: improved Additional Comments since pressure removed off g tube site it has improved. still has some mild blood oozing today. tolerating feeds. Objective Last 24 Hour Vital Signs Date Time Temp Pulse Resp B/P (MAP) Pulse Ox O2 Delivery O2 Flow Rate FiO2 05/12/17 12:00 97.7 88 20 135/87 100 05/12/17 11:44 83 05/12/17 08:00 97.3 78 20 113/63 99 05/12/17 04:00 Nasal Cannula 2.0 05/12/17 03:26 97.5 77 20 125/82 99 Nasal Cannula 05/12/17 00:00 Nasal Cannula 2.0 05/12/17 00:00 97.9 112 18 107/71 98 05/11/17 20:00 98.6 108 18 135/71 99 05/11/17 20:00 Nasal Cannula 2.0 05/11/17 15:55 98.1 69 18 137/79 98 I&O Intake and Output 05/11/17 05/12/17 19:00 07:00 Intake Total 804.916 ml 1190.000 ml Output Total 400 ml Balance 404.916 ml 1190.000 ml Intake Oral 0 ml Free Water 30 ml 60 ml IV Total 694.916 ml 750.000 ml Tube Feeding 80 ml 380 ml Output Urine Total 400 ml # Voids 2 2 # Bowel Movements 2 1 Dressing: dry, bloody Wound: clean, intact Drains: other - g tube Cardiovascular: RSR Respiratory: clear Abdomen: soft, non-tender, present bowel sounds Extremities: no tenderness Laboratory Tests Test 05/12/17 04:50 White Blood Count 7.4 K/UL (4.8-10.8) Red Blood Count 4.07 M/UL (4.70-6.10) L Hemoglobin 13.1 G/DL (14.2-18.0) L Hematocrit 38.6 % (42.0-52.0) L Mean Corpuscular Volume 95 FL (80-99) Mean Corpuscular Hemoglobin 32.3 PG (27.0-31.0) H Mean Corpuscular Hemoglobin Concent 34.0 G/DL (32.0-36.0) Red Cell Distribution Width 11.1 % (11.6-14.8) L Platelet Count 221 K/UL (150-450) Mean Platelet Volume 8.8 FL (6.5-10.1) Neutrophils (%) (Auto) 59.6 % (45.0-75.0) Lymphocytes (%) (Auto) 24.5 % (20.0-45.0) Monocytes (%) (Auto) 12.7 % (1.0-10.0) H Eosinophils (%) (Auto) 2.5 % (0.0-3.0) Basophils (%) (Auto) 0.7 % (0.0-2.0) Sodium Level 143 MMOL/L (136-145) Potassium Level 4.0 MMOL/L (3.5-5.1) Chloride Level 103 MMOL/L (98-107) Carbon Dioxide Level 30 MMOL/L (21-32) Anion Gap 10 mmol/L (5-15) Blood Urea Nitrogen 25 mg/dL (7-18) H Creatinine 0.6 MG/DL (0.55-1.30) Estimat Glomerular Filtration Rate mL/min (>60) Glucose Level 158 MG/DL (74-106) H Calcium Level 8.6 MG/DL (8.5-10.1) Phosphorus Level 3.4 MG/DL (2.5-4.9) Magnesium Level 2.0 MG/DL (1.8-2.4) Total Bilirubin 2.5 MG/DL (0.2-1.0) H Direct Bilirubin 0.6 MG/DL (0.0-0.3) H Aspartate Amino Transf (AST/SGOT) 16 U/L (15-37) Alanine Aminotransferase (ALT/SGPT) 15 U/L (12-78) Alkaline Phosphatase 67 U/L (46-116) Total Protein 6.3 G/DL (6.4-8.2) L Albumin 2.7 G/DL (3.4-5.0) L Globulin 3.6 g/dL Albumin/Globulin Ratio 0.8 (1.0-2.7) L Plan Problems: (1) G-tube site cellulitis Assessment & Plan: 77M with g tube site cellulitis. no abscess noted. irritation from g tube pressure noted. no active drainage but some mild serosang on dressings likely from recent manipulation. GI note reviewed. had bleeding earlier again and required cauterization. erythema/cellulitis improved since pressure removed. Noted some mild blood oozing again today. Surgicel ordered for placement around wound. should provide appropriate hemostasis. keep site clean. wound care around g tube site with wound cleaning and gauze dressings. need to ensure tube not too tight against skin forming pressure ulcer okay to use tube from surgical standpoint. appreciate GI input will monitor wound/ g tube. thank you for this consultation. will follow with you. Zeke Simon May 12, 2017 12:36
[2017-05-12] MEDS: NovoLOG Insulin Flexpen SUBQ SCH ×3 (12:45→21:01)
[2017-05-12] MEDS ORDERED: Lactobacillus-GG tablet GT SCH (13:00)
--- NOTE | 2017-05-12 15:51 | Consultation ---
Consult Note Assessment/Plan dict HHN abx check CXR KIMMIE DEJESUS May 12, 2017 15:51
[2017-05-12 16:00] VITALS: BP 113/75
[2017-05-12] MEDS ORDERED: 1/2 NS 1000ml IV ONE ×2 (16:43→16:53)
[2017-05-12] MEDS ORDERED: Sterile Water Irrig 1000ml IRRIG ONE (16:53)
[2017-05-12] MEDS ORDERED: Tubing IV Secondary IV ONE (16:53)
--- NOTE | 2017-05-12 16:53 | Diagnostic Imaging Report ---
Indication: Shortness of breath Technique: One view of the chest Comparison: 04/04/2014 Findings: Inspiration is suboptimal. There is perihilar bronchial wall thickening. No infiltrates, effusions, or congestion. Questionable 1 cm nodule is demonstrated in the left mid to lower lung, not evident previously. Impression: No acute abnormality Possible 1 cm left mid to lower lung nodule, not evident previously. Recommend further evaluation with chest CT Dr. Santana notified at the time of interpretation
[2017-05-12 20:00] VITALS: BP 127/62
[2017-05-12] MEDS: Albuterol/Ipratropium 3ml neb HHN SCH ×2 (20:09→23:15)
[2017-05-12] MEDS: Miralax 17gm pkt ORAL SCH (20:57)
[2017-05-12] MEDS: Donepezil 10mg tab GT SCH (20:58)
--- NOTE | 2017-05-12 21:08 | General Progress Note ---
Assessment/Plan Problem List: (1) Dehydration ICD Codes: E86.0 - Dehydration SNOMED: 06963580 (2) G-tube site cellulitis ICD Codes: K94.22 - Gastrostomy infection; L03.319 - Cellulitis of trunk, unspecified SNOMED: 127837773, 704087827 Status: stable Assessment/Plan peg site celluitis afebrile vitals stable abx per id moniter for bleeding Subjective ROS Limited/Unobtainable: Yes Allergies: Coded Allergies: No Known Allergies (Unverified , 04/04/14) Objective Last 24 Hour Vital Signs Date Time Temp Pulse Resp B/P (MAP) Pulse Ox O2 Delivery O2 Flow Rate FiO2 05/12/17 20:58 93 127/62 05/12/17 20:18 93 18 99 Nasal Cannula 3.0 32 05/12/17 20:10 98 Nasal Cannula 3.0 32 05/12/17 20:10 Nasal Cannula 3.0 32 05/12/17 20:09 91 18 98 Nasal Cannula 3.0 32 05/12/17 20:09 91 18 Nasal Cannula 3.0 32 05/12/17 20:00 97.5 84 20 127/62 98 05/12/17 16:00 98.0 79 20 113/75 100 05/12/17 12:00 97.7 88 20 135/87 100 05/12/17 11:44 83 05/12/17 08:00 97.3 78 20 113/63 99 05/12/17 04:00 Nasal Cannula 2.0 05/12/17 03:26 97.5 77 20 125/82 99 Nasal Cannula 05/12/17 00:00 Nasal Cannula 2.0 05/12/17 00:00 97.9 112 18 107/71 98 Intake and Output 05/11/17 05/12/17 19:00 07:00 Intake Total 804.916 ml 1240.000 ml Output Total 400 ml Balance 404.916 ml 1240.000 ml Intake Oral 0 ml Free Water 30 ml 60 ml IV Total 694.916 ml 750.000 ml Tube Feeding 80 ml 430 ml Output Urine Total 400 ml # Voids 2 2 # Bowel Movements 2 1 Laboratory Tests 05/12/17 04:50: White Blood Count 7.4, Red Blood Count 4.07L, Hemoglobin 13.1L, Hematocrit 38.6L , Mean Corpuscular Volume 95, Mean Corpuscular Hemoglobin 32.3H, Mean Corpuscular Hemoglobin Concent 34.0, Red Cell Distribution Width 11.1L, Platelet Count 221, Mean Platelet Volume 8.8, Neutrophils (%) (Auto) 59.6, Lymphocytes (%) (Auto) 24.5, Monocytes (%) (Auto) 12.7H, Eosinophils (%) (Auto) 2.5, Basophils (%) (Auto) 0.7, Sodium Level 143, Potassium Level 4.0, Chloride Level 103, Carbon Dioxide Level 30, Anion Gap 10, Blood Urea Nitrogen 25H, Creatinine 0.6, Estimat Glomerular Filtration Rate , Glucose Level 158H, Calcium Level 8.6, Phosphorus Level 3.4, Magnesium Level 2.0, Total Bilirubin 2.5H, Direct Bilirubin 0.6H, Aspartate Amino Transf (AST/SGOT) 16, Alanine Aminotransferase (ALT/SGPT) 15, Alkaline Phosphatase 67, Total Protein 6.3L, Albumin 2.7L, Globulin 3.6, Albumin/Globulin Ratio 0.8L Height (Feet): 5 Height (Inches): 5.00 Weight (Pounds): 140 Respiratory/Chest: lungs clear Jama Figueroa MD May 12, 2017 21:08
--- NOTE | 2017-05-12 21:30 | Consultation ---
DATE OF CONSULTATION: 05/12/2017 PULMONARY CONSULTATION CONSULTING PHYSICIAN: Ilia Campos M.D. HISTORY OF PRESENT ILLNESS: The patient is a 77-year-old man, who [facility] because of malfunctioning gastric tube with infection. He has been in the hospital for about two days and developed some respiratory congestion. I was called to see him in consultation for further evaluation and recommendations. Chest x-ray was ordered, but is not available at this time. The patient can provide no additional history. PAST MEDICAL HISTORY: Dementia, hypertension, arrhythmia, diabetes, hyperlipidemia, and Parkinson disease. ALLERGIES: None. MEDICATIONS: Reviewed. He is presently on antibiotics. REVIEW OF SYSTEMS: Cannot be obtained. PHYSICAL EXAMINATION: GENERAL: The patient is awake, but mumbling. He is thin and chronically ill. VITAL SIGNS: Show normal findings with saturations 100%. There is no high fever. Since admission, the maximum temperature is 99.9 on the day of admission. HEENT: The head is normocephalic. NECK: No jugular venous distention. CHEST: He has a few rhonchi. CARDIAC: Rhythm is regular. ABDOMEN: Soft with a gastric tube in place. EXTREMITIES: No clubbing, cyanosis, or edema. LABORATORY AND DIAGNOSTIC DATA: Laboratory studies show a normal white count, hemoglobin is 13, and platelets are normal. Chemistry is normal, but the BUN is slightly elevated. Blood sugar is 158. Albumin is 2.7. Bilirubin is 2.5, but liver enzymes are normal. Chest x-ray is pending. IMPRESSIONS: 1. Respiratory congestion, likely due to aspiration possible pneumonia, chest x-ray is pending. 2. Gastric tube site infection. 3. Dementia. 4. Parkinson disease. 5. Dysphagia. 6. Hypertension. PLAN: The patient will be started on respiratory treatments. Antibiotics will be continued. Chest x-ray will be reviewed when available. Ilia Campos M.D. DR: BING JOB#: [id number] CC: Ilia Campos M.D.; Fax#: [phone] EDGAR MCGEE M.D. ; FAX#: [phone]
[2017-05-13] VITALS: BP 90/59
[2017-05-13] MEDS: Albuterol/Ipratropium 3ml neb HHN SCH ×6 (03:38→23:41)
[2017-05-13 04:00] VITALS: BP 131/78
[2017-05-13] MEDS: Piperacillin/Tazobactam 3.375 GM in D5W 55 ML IVPB SCH ×3 (05:35→21:16)
[2017-05-13] MEDS: NovoLOG Insulin Flexpen SUBQ SCH ×3 (05:38→16:48)
[2017-05-13 06:38] LABS: BASOPHILS % (AUTO) 0.8 % (0.0-2.0); EOSINOPHILS % (AUTO) 3.6 % (0.0-3.0); LYMPHOCYTES % (AUTO) 26.9 % (20.0-45.0); MEAN CORPUSCULAR HEMOGLOBIN 31.8 PG (27.0-31.0); MEAN CORPUSCULAR HGB CONC 33.4 G/DL (32.0-36.0); MEAN CORPUSCULAR VOLUME 95 FL (80-99); MEAN PLATELET VOLUME 8.7 FL (6.5-10.1); MONOCYTES % (AUTO) 11.9 % (1.0-10.0); NEUTROPHILS % (AUTO) 56.8 % (45.0-75.0); PLATELET COUNT 226 K/UL (150-450); RED BLOOD COUNT 4.14 M/UL (4.70-6.10); RED CELL DISTRIBUTION WIDTH 10.9 % (11.6-14.8); WHITE BLOOD COUNT 7.5 K/UL (4.8-10.8)
[2017-05-13 07:06] LABS: ANION GAP 3 mmol/L (5-15); CALCIUM 7.6 MG/DL (8.5-10.1); CARBON DIOXIDE 34 MMOL/L (21-32); CHLORIDE 103 MMOL/L (98-107); CREATININE 0.6 MG/DL (0.55-1.30); POTASSIUM 4.1 MMOL/L (3.5-5.1); SODIUM 140 MMOL/L (136-145)
[2017-05-13 08:15] VITALS: BP 127/76
[2017-05-13] MEDS: Aspirin Baby 81mg GT SCH (08:29)
[2017-05-13] MEDS: Digoxin 0.125mg tab GT SCH (08:29)
--- NOTE | 2017-05-13 09:46 | Pulmonology Progress Note ---
Assessment/Plan Assessment/Plan 1. Respiratory congestion, likely due to aspiration possible pneumonia, 2. Gastric tube site infection. 3. Dementia. 4. Parkinson disease. 5. Dysphagia. 6. Hypertension. 7. Possible LLL nodule, CT pending CT chest continue HHN, abx Subjective ROS Limited/Unobtainable: Yes Allergies: Coded Allergies: No Known Allergies (Unverified , 04/04/14) Objective Last 24 Hour Vital Signs Date Time Temp Pulse Resp B/P (MAP) Pulse Ox O2 Delivery O2 Flow Rate FiO2 05/13/17 08:29 109 05/13/17 08:29 109 127/76 05/13/17 08:15 97.9 109 22 127/76 99 Nasal Cannula 2.0 05/13/17 07:47 61 18 93 Nasal Cannula 2.0 28 05/13/17 07:35 Nasal Cannula 2.0 28 05/13/17 07:35 96 Nasal Cannula 2.0 28 05/13/17 07:34 69 18 96 Nasal Cannula 2.0 28 05/13/17 04:00 Nasal Cannula 2.0 05/13/17 04:00 97.7 87 20 131/78 100 05/13/17 03:48 68 18 99 Nasal Cannula 2.0 28 05/13/17 03:38 71 20 99 Nasal Cannula 2.0 28 05/13/17 00:00 Nasal Cannula 2.0 05/13/17 00:00 97.0 86 20 90/59 98 05/12/17 23:24 88 18 99 Nasal Cannula 2.0 28 05/12/17 23:15 86 18 99 Nasal Cannula 3.0 32 05/12/17 20:58 93 127/62 05/12/17 20:18 93 18 99 Nasal Cannula 3.0 32 05/12/17 20:10 98 Nasal Cannula 3.0 32 05/12/17 20:10 Nasal Cannula 3.0 32 05/12/17 20:09 91 18 98 Nasal Cannula 3.0 32 05/12/17 20:09 91 18 Nasal Cannula 3.0 32 05/12/17 20:00 97.5 84 20 127/62 98 05/12/17 20:00 Nasal Cannula 2.0 05/12/17 16:00 98.0 79 20 113/75 100 05/12/17 12:00 97.7 88 20 135/87 100 05/12/17 11:44 83 Intake and Output 05/12/17 05/13/17 19:00 07:00 Intake Total 1407.416 ml 1600.000 ml Balance 1407.416 ml 1600.000 ml Free Water 150 ml 60 ml IV Total 657.416 ml 990.000 ml Tube Feeding 600 ml 550 ml # Voids 3 2 # Bowel Movements 1 General Appearance: no acute distress HEENT: atraumatic Respiratory/Chest: lungs clear Cardiovascular: normal rate Microbiology Date/Time Source Procedure Growth Status 05/10/17 18:25 Nasal Nares MRSA Culture - Final NO METHICILLIN RESISTANT STAPH AUREUS... Complete 05/10/17 18:25 Rectum VRE Culture - Final NO VANCOMYCIN RESISTANT ENTEROCOCCUS ... Complete Laboratory Tests 05/13/17 05:10: White Blood Count 7.5, Red Blood Count 4.14L, Hemoglobin 13.2L, Hematocrit 39.5L , Mean Corpuscular Volume 95, Mean Corpuscular Hemoglobin 31.8H, Mean Corpuscular Hemoglobin Concent 33.4, Red Cell Distribution Width 10.9L, Platelet Count 226, Mean Platelet Volume 8.7, Neutrophils (%) (Auto) 56.8, Lymphocytes (%) (Auto) 26.9, Monocytes (%) (Auto) 11.9H, Eosinophils (%) (Auto) 3.6H, Basophils (%) (Auto) 0.8, Sodium Level 140, Potassium Level 4.1, Chloride Level 103, Carbon Dioxide Level 34H, Anion Gap 3L, Blood Urea Nitrogen 14, Creatinine 0.6, Estimat Glomerular Filtration Rate , Glucose Level 143H, Calcium Level 7.6L, Ferritin 147 Current Medications Medications (Trade) Dose Ordered Sig/Shahab Route PRN Reason Start Time Stop Time Status Last Admin Dose Admin Acetaminophen (Tylenol) 650 mg Q6HR PRN RECTAL Mild Pain/Temp > 100.5 05/10/17 22:15 06/09/17 22:14 Albuterol/ Ipratropium (Albuterol/ Ipratropium) 3 ml Q4HRT HHN 05/12/17 19:00 05/17/17 18:59 05/13/17 07:32 Aspirin (ASA) 81 mg DAILY GT 05/12/17 11:30 06/11/17 11:29 05/13/17 08:29 Atorvastatin Calcium (Lipitor) 10 mg BEDTIME GT 05/12/17 21:00 06/11/17 20:59 05/12/17 20:58 Carbidopa/Levodopa (Sinemet 25/250) 1 ea Q8HR GT 05/12/17 12:00 06/11/17 11:59 05/13/17 05:36 Carvedilol (Coreg) 3.125 mg EVERY 12 HOURS GT 05/12/17 21:00 06/11/17 20:59 05/12/17 20:58 Dextrose (Dextrose 50%) STAT PRN IV Hypoglycemia 05/12/17 11:15 06/11/17 11:14 Digoxin (Lanoxin) 0.125 mg DAILY GT 05/12/17 11:30 06/11/17 11:29 05/13/17 08:29 Donepezil HCl (Aricept) 10 mg QHS GT 05/12/17 21:00 06/11/17 20:59 05/12/17 20:58 Insulin Aspart (NovoLOG) BEFORE MEALS AND HS SUBQ 05/12/17 12:30 06/11/17 12:29 05/13/17 05:38 Piperacillin Sod/ Tazobactam Sod 3.375 gm/Dextrose 55 ml @ 13.75 mls/ hr EVERY 8 HOURS IVPB 05/11/17 14:00 05/16/17 13:59 05/13/17 05:35 Polyethylene Glycol (Miralax) 17 gm BEDTIME ORAL 05/11/17 21:00 06/10/17 20:59 05/12/17 20:57 Sodium Chloride 1,000 ml @ 60 mls/hr [id number] IV 05/10/17 23:00 06/09/17 22:59 05/12/17 23:59 Vancomycin HCl (Vanco rx to dose) 1 ea DAILY PRN MISC Per rx protocol 05/11/17 11:00 06/10/17 10:59 Vancomycin HCl 1 gm/Dextrose 275 ml @ 183.708 mls/hr Q12H IVPB 05/11/17 12:00 05/16/17 11:59 05/12/17 23:58 KIMMIE DEJESUS May 13, 2017 09:46
[2017-05-13] MEDS ORDERED: Lidocaine 1% 10mg/ml/EPI 0.01mg/ml 50ml INJ ONE (11:00)
[2017-05-13 12:15] VITALS: BP 133/78
[2017-05-13] MEDS: Vancomycin 1gm in D5W 275ml IVPB SCH ×2 (12:42→23:56)
--- NOTE | 2017-05-13 12:43 | General Surgery Progress Note ---
General Surgery-Progress Note Subjective Additional Comments significant amount of blood noted on dressings this AM. otherwise well. Objective Last 24 Hour Vital Signs Date Time Temp Pulse Resp B/P (MAP) Pulse Ox O2 Delivery O2 Flow Rate FiO2 05/13/17 11:05 92 20 96 Nasal Cannula 2.0 28 05/13/17 10:59 99 18 97 Nasal Cannula 2.0 28 05/13/17 08:29 109 05/13/17 08:29 109 127/76 05/13/17 08:15 97.9 109 22 127/76 99 Nasal Cannula 2.0 05/13/17 07:47 61 18 93 Nasal Cannula 2.0 28 05/13/17 07:35 Nasal Cannula 2.0 28 05/13/17 07:35 96 Nasal Cannula 2.0 28 05/13/17 07:34 69 18 96 Nasal Cannula 2.0 28 05/13/17 04:00 Nasal Cannula 2.0 05/13/17 04:00 97.7 87 20 131/78 100 05/13/17 03:48 68 18 99 Nasal Cannula 2.0 28 05/13/17 03:38 71 20 99 Nasal Cannula 2.0 28 05/13/17 00:00 Nasal Cannula 2.0 05/13/17 00:00 97.0 86 20 90/59 98 05/12/17 23:24 88 18 99 Nasal Cannula 2.0 28 05/12/17 23:15 86 18 99 Nasal Cannula 3.0 32 05/12/17 20:58 93 127/62 05/12/17 20:18 93 18 99 Nasal Cannula 3.0 32 05/12/17 20:10 98 Nasal Cannula 3.0 32 05/12/17 20:10 Nasal Cannula 3.0 32 05/12/17 20:09 91 18 98 Nasal Cannula 3.0 32 05/12/17 20:09 91 18 Nasal Cannula 3.0 32 05/12/17 20:00 97.5 84 20 127/62 98 05/12/17 20:00 Nasal Cannula 2.0 05/12/17 16:00 98.0 79 20 113/75 100 I&O Intake and Output 05/12/17 05/13/17 19:00 07:00 Intake Total 1407.416 ml 1600.000 ml Balance 1407.416 ml 1600.000 ml Free Water 150 ml 60 ml IV Total 657.416 ml 990.000 ml Tube Feeding 600 ml 550 ml # Voids 3 2 # Bowel Movements 1 Dressing: saturated, bloody Wound: clean, intact Drains: other - g tube Cardiovascular: RSR Respiratory: clear Abdomen: soft, flat, non-tender, present bowel sounds Extremities: no tenderness Laboratory Tests Test 05/13/17 05:10 05/13/17 10:55 White Blood Count 7.5 K/UL (4.8-10.8) Red Blood Count 4.14 M/UL (4.70-6.10) L Hemoglobin 13.2 G/DL (14.2-18.0) L Hematocrit 39.5 % (42.0-52.0) L Mean Corpuscular Volume 95 FL (80-99) Mean Corpuscular Hemoglobin 31.8 PG (27.0-31.0) H Mean Corpuscular Hemoglobin Concent 33.4 G/DL (32.0-36.0) Red Cell Distribution Width 10.9 % (11.6-14.8) L Platelet Count 226 K/UL (150-450) Mean Platelet Volume 8.7 FL (6.5-10.1) Neutrophils (%) (Auto) 56.8 % (45.0-75.0) Lymphocytes (%) (Auto) 26.9 % (20.0-45.0) Monocytes (%) (Auto) 11.9 % (1.0-10.0) H Eosinophils (%) (Auto) 3.6 % (0.0-3.0) H Basophils (%) (Auto) 0.8 % (0.0-2.0) Sodium Level 140 MMOL/L (136-145) Potassium Level 4.1 MMOL/L (3.5-5.1) Chloride Level 103 MMOL/L (98-107) Carbon Dioxide Level 34 MMOL/L (21-32) H Anion Gap 3 mmol/L (5-15) L Blood Urea Nitrogen 14 mg/dL (7-18) Creatinine 0.6 MG/DL (0.55-1.30) Estimat Glomerular Filtration Rate mL/min (>60) Glucose Level 143 MG/DL (74-106) H Calcium Level 7.6 MG/DL (8.5-10.1) L Ferritin 147 NG/ML (8-388) Vancomycin Level Trough 15.8 ug/mL (5.0-12.0) H Plan Problems: (1) G-tube site cellulitis Assessment & Plan: 77M with g tube site cellulitis. no abscess noted. irritation from g tube pressure noted. no active drainage but some mild serosang on dressings likely from recent manipulation. GI note reviewed. had bleeding earlier that required cauterization. erythema/cellulitis improved since pressure removed. significant blood oozing noted on dressings today today. Surgicel not successful. spoke with nephew and bother over the phone and discussed care. g tube worn and not holding well. will plan to replace g tube at bedside today with new tube that will be in better position and hold. will inject lidocaine with epi to ensure comfort and hemostasis. g tube replaced at bedside today see note for details will follow. monitor for bleeding. thank you for this consultation. will follow with you. Zeke Simon May 13, 2017 12:43
--- NOTE | 2017-05-13 12:47 | Operative Note - PDOC ---
Operative Note Operative Note Date of Operation/Procedure: May 13, 2017 Pre-op Diagnosis: malfunctioning g tube Procedure: g tube replacement Post-op Diagnosis: same as pre-op Surgeon: moustapha Anesthesia: local Specimen: none Complications: none Condition: stable Estimated Blood Loss: minimal Implant(s) used?: Yes - 20F gastric feeding tube Indications for Procedure 77M with g tube site cellulitis, malfunctioning/malpositioned g tube, and g tube site bleeding. attempted pressure, dressings, and surgicel without improvement. g tube replacement indicated. spoke with nephew and brother who consented to procedure. Description of Procedure patient made comfortable in supine position at bedside. prior g tube identified and noted to be worn and would not hold well. prior g tube removed. once removed blood oozing from inferior aspect of insertion site noted. lidocaine 1% with epi infiltrated and hemostasis obtained. new 20f g tube placed and balloon inflated. dressings applied and new g tube functional and in good positioning. Zeke Simon May 13, 2017 12:47
--- NOTE | 2017-05-13 14:48 | GI Progress Note ---
Assessment/Plan Problems: (1) G-tube site cellulitis ICD Codes: K94.22 - Gastrostomy infection; L03.319 - Cellulitis of trunk, unspecified SNOMED: 204129955, 180019001 (2) Failure to thrive ICD Codes: R62.51 - Failure to thrive (child) SNOMED: 41702587 (3) Dehydration ICD Codes: E86.0 - Dehydration SNOMED: 73087622 Status: unchanged Status Narrative Discussed with Dr. Stevenson. Assessment/Plan GT changed by surgery today, monitor for excessive bleeding GT site cauterization prn GT site care TID/prn, keep area dry GTFs per RD bowel regime follow labs Subjective Subjective limited Objective Last 24 Hour Vital Signs Date Time Temp Pulse Resp B/P (MAP) Pulse Ox O2 Delivery O2 Flow Rate FiO2 05/13/17 12:15 97.1 95 19 133/78 97 Nasal Cannula 2.0 05/13/17 11:05 92 20 96 Nasal Cannula 2.0 28 05/13/17 10:59 99 18 97 Nasal Cannula 2.0 28 05/13/17 08:29 109 05/13/17 08:29 109 127/76 05/13/17 08:15 97.9 109 22 127/76 99 Nasal Cannula 2.0 05/13/17 07:47 61 18 93 Nasal Cannula 2.0 28 05/13/17 07:35 Nasal Cannula 2.0 28 05/13/17 07:35 96 Nasal Cannula 2.0 28 05/13/17 07:34 69 18 96 Nasal Cannula 2.0 28 05/13/17 04:00 Nasal Cannula 2.0 05/13/17 04:00 97.7 87 20 131/78 100 05/13/17 03:48 68 18 99 Nasal Cannula 2.0 28 05/13/17 03:38 71 20 99 Nasal Cannula 2.0 28 05/13/17 00:00 Nasal Cannula 2.0 05/13/17 00:00 97.0 86 20 90/59 98 05/12/17 23:24 88 18 99 Nasal Cannula 2.0 28 05/12/17 23:15 86 18 99 Nasal Cannula 3.0 32 05/12/17 20:58 93 127/62 05/12/17 20:18 93 18 99 Nasal Cannula 3.0 32 05/12/17 20:10 98 Nasal Cannula 3.0 32 05/12/17 20:10 Nasal Cannula 3.0 32 05/12/17 20:09 91 18 98 Nasal Cannula 3.0 32 05/12/17 20:09 91 18 Nasal Cannula 3.0 32 05/12/17 20:00 97.5 84 20 127/62 98 05/12/17 20:00 Nasal Cannula 2.0 05/12/17 16:00 98.0 79 20 113/75 100 Intake and Output 05/12/17 05/13/17 18:59 06:59 Intake Total 1317.416 ml 1740.000 ml Balance 1317.416 ml 1740.000 ml Free Water 120 ml 90 ml IV Total 597.416 ml 1050.000 ml Tube Feeding 600 ml 600 ml # Voids 3 2 # Bowel Movements 1 Laboratory Tests Test 05/13/17 05:10 05/13/17 10:55 White Blood Count 7.5 K/UL (4.8-10.8) Red Blood Count 4.14 M/UL (4.70-6.10) L Hemoglobin 13.2 G/DL (14.2-18.0) L Hematocrit 39.5 % (42.0-52.0) L Mean Corpuscular Volume 95 FL (80-99) Mean Corpuscular Hemoglobin 31.8 PG (27.0-31.0) H Mean Corpuscular Hemoglobin Concent 33.4 G/DL (32.0-36.0) Red Cell Distribution Width 10.9 % (11.6-14.8) L Platelet Count 226 K/UL (150-450) Mean Platelet Volume 8.7 FL (6.5-10.1) Neutrophils (%) (Auto) 56.8 % (45.0-75.0) Lymphocytes (%) (Auto) 26.9 % (20.0-45.0) Monocytes (%) (Auto) 11.9 % (1.0-10.0) H Eosinophils (%) (Auto) 3.6 % (0.0-3.0) H Basophils (%) (Auto) 0.8 % (0.0-2.0) Sodium Level 140 MMOL/L (136-145) Potassium Level 4.1 MMOL/L (3.5-5.1) Chloride Level 103 MMOL/L (98-107) Carbon Dioxide Level 34 MMOL/L (21-32) H Anion Gap 3 mmol/L (5-15) L Blood Urea Nitrogen 14 mg/dL (7-18) Creatinine 0.6 MG/DL (0.55-1.30) Estimat Glomerular Filtration Rate mL/min (>60) Glucose Level 143 MG/DL (74-106) H Calcium Level 7.6 MG/DL (8.5-10.1) L Ferritin 147 NG/ML (8-388) Vancomycin Level Trough 15.8 ug/mL (5.0-12.0) H Height (Feet): 5 Height (Inches): 5.00 Weight (Pounds): 140 General Appearance: WD/WN, no apparent distress, alert, thin Cardiovascular: normal rate Respiratory/Chest: normal breath sounds, no respiratory distress Abdominal Exam: normal bowel sounds, non tender, soft Extremities: non-tender Objective significant bleeding with saturated guaze. Jennifer Handley N.P. May 13, 2017 14:48
[2017-05-13 16:15] VITALS: BP 119/78
--- NOTE | 2017-05-13 16:36 | Infectious Diseases Prog Note ---
Assessment/Plan Assessment/Plan A; GT site infection Abdominal wall cellulitis DM Parkinson's disease Dementia P: Continue Zosyn & Vancomycin Will f/u cultures Subjective ROS Limited/Unobtainable: Yes Gastrointestinal/Abdominal: Reports: other - GT was changed Allergies: Coded Allergies: No Known Allergies (Unverified , 04/04/14) Objective Vital Signs Last 24 Hour Vital Signs Date Time Temp Pulse Resp B/P (MAP) Pulse Ox O2 Delivery O2 Flow Rate FiO2 05/13/17 16:15 97.3 87 18 119/78 97 Nasal Cannula 2.0 05/13/17 15:43 84 16 99 Nasal Cannula 2.0 28 05/13/17 15:17 82 16 98 Nasal Cannula 2.0 28 05/13/17 12:15 97.1 95 19 133/78 97 Nasal Cannula 2.0 05/13/17 11:05 92 20 96 Nasal Cannula 2.0 28 05/13/17 10:59 99 18 97 Nasal Cannula 2.0 28 05/13/17 08:29 109 05/13/17 08:29 109 127/76 05/13/17 08:15 97.9 109 22 127/76 99 Nasal Cannula 2.0 05/13/17 07:47 61 18 93 Nasal Cannula 2.0 28 05/13/17 07:35 Nasal Cannula 2.0 28 05/13/17 07:35 96 Nasal Cannula 2.0 28 05/13/17 07:34 69 18 96 Nasal Cannula 2.0 28 05/13/17 04:00 Nasal Cannula 2.0 05/13/17 04:00 97.7 87 20 131/78 100 05/13/17 03:48 68 18 99 Nasal Cannula 2.0 28 05/13/17 03:38 71 20 99 Nasal Cannula 2.0 28 05/13/17 00:00 Nasal Cannula 2.0 05/13/17 00:00 97.0 86 20 90/59 98 05/12/17 23:24 88 18 99 Nasal Cannula 2.0 28 05/12/17 23:15 86 18 99 Nasal Cannula 3.0 32 05/12/17 20:58 93 127/62 05/12/17 20:18 93 18 99 Nasal Cannula 3.0 32 05/12/17 20:10 98 Nasal Cannula 3.0 32 05/12/17 20:10 Nasal Cannula 3.0 32 05/12/17 20:09 91 18 98 Nasal Cannula 3.0 32 05/12/17 20:09 91 18 Nasal Cannula 3.0 32 05/12/17 20:00 97.5 84 20 127/62 98 05/12/17 20:00 Nasal Cannula 2.0 Height (Feet): 5 Height (Inches): 5.00 Weight (Pounds): 140 General Appearance: no acute distress HEENT: mucous membranes moist Respiratory/Chest: lungs clear Cardiovascular: normal rate Abdomen: soft, non tender, other - GTfeeding Skin: other - erythema aroud GT site Neurologic/Psychiatric: disoriented, aphasia Microbiology Date/Time Source Procedure Growth Status 05/10/17 18:25 Nasal Nares MRSA Culture - Final NO METHICILLIN RESISTANT STAPH AUREUS... Complete 05/10/17 18:25 Rectum VRE Culture - Final NO VANCOMYCIN RESISTANT ENTEROCOCCUS ... Complete Laboratory Tests Test 05/13/17 05:10 05/13/17 10:55 White Blood Count 7.5 K/UL (4.8-10.8) Red Blood Count 4.14 M/UL (4.70-6.10) L Hemoglobin 13.2 G/DL (14.2-18.0) L Hematocrit 39.5 % (42.0-52.0) L Mean Corpuscular Volume 95 FL (80-99) Mean Corpuscular Hemoglobin 31.8 PG (27.0-31.0) H Mean Corpuscular Hemoglobin Concent 33.4 G/DL (32.0-36.0) Red Cell Distribution Width 10.9 % (11.6-14.8) L Platelet Count 226 K/UL (150-450) Mean Platelet Volume 8.7 FL (6.5-10.1) Neutrophils (%) (Auto) 56.8 % (45.0-75.0) Lymphocytes (%) (Auto) 26.9 % (20.0-45.0) Monocytes (%) (Auto) 11.9 % (1.0-10.0) H Eosinophils (%) (Auto) 3.6 % (0.0-3.0) H Basophils (%) (Auto) 0.8 % (0.0-2.0) Sodium Level 140 MMOL/L (136-145) Potassium Level 4.1 MMOL/L (3.5-5.1) Chloride Level 103 MMOL/L (98-107) Carbon Dioxide Level 34 MMOL/L (21-32) H Anion Gap 3 mmol/L (5-15) L Blood Urea Nitrogen 14 mg/dL (7-18) Creatinine 0.6 MG/DL (0.55-1.30) Estimat Glomerular Filtration Rate mL/min (>60) Glucose Level 143 MG/DL (74-106) H Calcium Level 7.6 MG/DL (8.5-10.1) L Ferritin 147 NG/ML (8-388) Vancomycin Level Trough 15.8 ug/mL (5.0-12.0) H Current Medications Medications (Trade) Dose Ordered Sig/Shahab Route PRN Reason Start Time Stop Time Status Last Admin Dose Admin Acetaminophen (Tylenol) 650 mg Q6HR PRN RECTAL Mild Pain/Temp > 100.5 05/10/17 22:15 06/09/17 22:14 Albuterol/ Ipratropium (Albuterol/ Ipratropium) 3 ml Q4HRT HHN 05/12/17 19:00 05/17/17 18:59 05/13/17 15:17 Aspirin (ASA) 81 mg DAILY GT 05/12/17 11:30 06/11/17 11:29 05/13/17 08:29 Atorvastatin Calcium (Lipitor) 10 mg BEDTIME GT 05/12/17 21:00 06/11/17 20:59 05/12/17 20:58 Carbidopa/Levodopa (Sinemet 25/250) 1 ea Q8HR GT 05/12/17 12:00 06/11/17 11:59 05/13/17 15:01 Carvedilol (Coreg) 3.125 mg EVERY 12 HOURS GT 05/12/17 21:00 06/11/17 20:59 05/12/17 20:58 Dextrose (Dextrose 50%) STAT PRN IV Hypoglycemia 05/12/17 11:15 06/11/17 11:14 Digoxin (Lanoxin) 0.125 mg DAILY GT 05/12/17 11:30 06/11/17 11:29 05/13/17 08:29 Donepezil HCl (Aricept) 10 mg QHS GT 05/12/17 21:00 06/11/17 20:59 05/12/17 20:58 Insulin Aspart (NovoLOG) BEFORE MEALS AND HS SUBQ 05/12/17 12:30 06/11/17 12:29 05/13/17 05:38 Piperacillin Sod/ Tazobactam Sod 3.375 gm/Dextrose 55 ml @ 13.75 mls/ hr EVERY 8 HOURS IVPB 05/11/17 14:00 05/16/17 13:59 05/13/17 15:01 Polyethylene Glycol (Miralax) 17 gm BEDTIME ORAL 05/11/17 21:00 06/10/17 20:59 05/12/17 20:57 Sodium Chloride 1,000 ml @ 60 mls/hr [id number] IV 05/10/17 23:00 06/09/17 22:59 05/12/17 23:59 Vancomycin HCl (Vanco rx to dose) 1 ea DAILY PRN MISC Per rx protocol 05/11/17 11:00 06/10/17 10:59 Vancomycin HCl 1 gm/Dextrose 275 ml @ 183.708 mls/hr Q12H IVPB 05/11/17 12:00 05/16/17 11:59 05/13/17 12:42 NURIA HANLEY May 13, 2017 16:36
[2017-05-13] MEDS ORDERED: 1/2 NS 1000ml IV ONE (16:55)
[2017-05-13 20:00] VITALS: BP 117/69
[2017-05-13] MEDS: Donepezil 10mg tab GT SCH (20:28)
[2017-05-13] MEDS: Miralax 17gm pkt ORAL SCH (20:28)
--- NOTE | 2017-05-13 20:56 | General Progress Note ---
Assessment/Plan Problem List: (1) Dehydration ICD Codes: E86.0 - Dehydration SNOMED: 70653298 (2) G-tube site cellulitis ICD Codes: K94.22 - Gastrostomy infection; L03.319 - Cellulitis of trunk, unspecified SNOMED: 065853088, 343049627 Status: progressing Assessment/Plan peg site celluitis afebrile abx per id dehydration improving Subjective ROS Limited/Unobtainable: Yes Allergies: Coded Allergies: No Known Allergies (Unverified , 04/04/14) Objective Last 24 Hour Vital Signs Date Time Temp Pulse Resp B/P (MAP) Pulse Ox O2 Delivery O2 Flow Rate FiO2 05/13/17 20:29 66 117/69 05/13/17 20:07 Nasal Cannula 2.0 28 05/13/17 20:06 97 Nasal Cannula 2.0 28 05/13/17 20:00 97.2 66 20 117/69 96 05/13/17 19:59 80 20 98 Nasal Cannula 2.0 28 05/13/17 19:51 77 22 97 Nasal Cannula 2.0 28 05/13/17 16:15 97.3 87 18 119/78 97 Nasal Cannula 2.0 05/13/17 15:43 84 16 99 Nasal Cannula 2.0 28 05/13/17 15:17 82 16 98 Nasal Cannula 2.0 28 05/13/17 12:15 97.1 95 19 133/78 97 Nasal Cannula 2.0 05/13/17 11:05 92 20 96 Nasal Cannula 2.0 28 05/13/17 10:59 99 18 97 Nasal Cannula 2.0 05/13/17 08:29 109 05/13/17 08:29 109 127/76 05/13/17 08:15 97.9 109 22 127/76 99 Nasal Cannula 2.0 05/13/17 07:47 61 18 93 Nasal Cannula 2.0 28 05/13/17 07:35 Nasal Cannula 2.0 28 05/13/17 07:35 96 Nasal Cannula 2.0 28 05/13/17 07:34 69 18 96 Nasal Cannula 2.0 28 05/13/17 04:00 Nasal Cannula 2.0 05/13/17 04:00 97.7 87 20 131/78 100 05/13/17 03:48 68 18 99 Nasal Cannula 2.0 28 05/13/17 03:38 71 20 99 Nasal Cannula 2.0 28 05/13/17 00:00 Nasal Cannula 2.0 05/13/17 00:00 97.0 86 20 90/59 98 05/12/17 23:24 88 18 99 Nasal Cannula 2.0 28 05/12/17 23:15 86 18 99 Nasal Cannula 3.0 32 05/12/17 20:58 93 127/62 Intake and Output 05/12/17 05/13/17 19:00 07:00 Intake Total 1407.416 ml 1600.000 ml Balance 1407.416 ml 1600.000 ml Free Water 150 ml 60 ml IV Total 657.416 ml 990.000 ml Tube Feeding 600 ml 550 ml # Voids 3 2 # Bowel Movements 1 Laboratory Tests 05/13/17 05:10: White Blood Count 7.5, Red Blood Count 4.14L, Hemoglobin 13.2L, Hematocrit 39.5L , Mean Corpuscular Volume 95, Mean Corpuscular Hemoglobin 31.8H, Mean Corpuscular Hemoglobin Concent 33.4, Red Cell Distribution Width 10.9L, Platelet Count 226, Mean Platelet Volume 8.7, Neutrophils (%) (Auto) 56.8, Lymphocytes (%) (Auto) 26.9, Monocytes (%) (Auto) 11.9H, Eosinophils (%) (Auto) 3.6H, Basophils (%) (Auto) 0.8, Sodium Level 140, Potassium Level 4.1, Chloride Level 103, Carbon Dioxide Level 34H, Anion Gap 3L, Blood Urea Nitrogen 14, Creatinine 0.6, Estimat Glomerular Filtration Rate , Glucose Level 143H, Calcium Level 7.6L, Ferritin 147 05/13/17 10:55: Vancomycin Level Trough 15.8H Height (Feet): 5 Height (Inches): 5.00 Weight (Pounds): 140 Cardiovascular: normal rate Respiratory/Chest: lungs clear Jama Figueroa MD May 13, 2017 20:56
[2017-05-14] VITALS: BP 96/64
--- NOTE | 2017-05-14 01:30 | Consultation ---
DATE OF CONSULTATION: 05/13/2017 NOTE: POOR AUDIO QUALITY HEMATOLOGY/ONCOLOGY CONSULTATION CONSULTING PHYSICIAN: Matt Mauricio M.D. REFERRING PHYSICIAN: Jama Figueroa M.D. REASON FOR CONSULTATION: Evaluation of anemia and GI bleed. IDENTIFYING DATA: Dear Dr. Figueroa, The patient is a pleasant 77-year-old male with a past medical history, which is significant for G-tube placement, has extensive bleeding around the site. He has been seen by Surgical Service. He has mentioned erythema and drainage noted around the G-tube site, transferred for evaluation, noted to have anemia. Hematology Service consulted. Surgery and GI consulted. KUB contrast done. NG tube is in proper position. Labs reviewed. EMR reviewed. The patient examined. The patient is nonverbal. PAST MEDICAL HISTORY: Dehydration . PAST SURGICAL HISTORY: History of G-tube placement. MEDICATIONS: Aspirin, Lipitor, carbidopa and levodopa, Coreg, digoxin, , and metformin. ALLERGIES: No known drug allergies. REVIEW OF SYSTEMS: Difficult to obtain given nonverbal. PHYSICAL EXAMINATION: VITAL SIGNS: Reviewed. GENERAL: No distress. PULMONARY: . CARDIOVASCULAR: Regular rate. No S3 or S4. ABDOMEN: Soft, G-tube with erythema. EXTREMITIES: No cyanosis, swelling, or edema. NEUROLOGIC: Nonfocal. Unresponsive. LABORATORY AND DIAGNOSTIC DATA: WBC 9.3, hemoglobin 14.5, hematocrit 46, and platelet count 182,000. ASSESSMENT AND RECOMMENDATIONS: 1. Anemia secondary to gastrointestinal bleed. Current hemoglobin 13.2. Continue the patient on omeprazole. 2. Gastrostomy tube site cellulitis, has been started on vancomycin. Continue to closely monitor. 3. Respiratory failure, likely due to aspiration pneumonia. 4. Gastrostomy tube site . I appreciate the consultation. Matt Mauricio M.D. DR: SHAY JOB#: [id number] CC:
[2017-05-14] MEDS: Albuterol/Ipratropium 3ml neb HHN SCH ×4 (02:12→15:30)
[2017-05-14 04:00] VITALS: BP 124/78
[2017-05-14] MEDS: Piperacillin/Tazobactam 3.375 GM in D5W 55 ML IVPB SCH (05:27)
[2017-05-14] MEDS: NovoLOG Insulin Flexpen SUBQ SCH ×3 (05:35→12:33)
[2017-05-14 07:55] VITALS: BP 109/80
--- NOTE | 2017-05-14 07:56 | General Progress Note ---
Assessment/Plan Problem List: (1) Dehydration ICD Codes: E86.0 - Dehydration SNOMED: 67794663 (2) Failure to thrive ICD Codes: R62.51 - Failure to thrive (child) SNOMED: 86245513 (3) UTI (lower urinary tract infection) ICD Codes: N39.0 - Urinary tract infection, site not specified SNOMED: 9627973 (4) G-tube site cellulitis ICD Codes: K94.22 - Gastrostomy infection; L03.319 - Cellulitis of trunk, unspecified SNOMED: 691055020, 997006938 Assessment/Plan GT changed by surgery GT site cauterization prn GT site care TID/prn, keep area dry GTFs per RD bowel regime follow labs Subjective ROS Limited/Unobtainable: No Allergies: Coded Allergies: No Known Allergies (Unverified , 04/04/14) Objective Last 24 Hour Vital Signs Date Time Temp Pulse Resp B/P (MAP) Pulse Ox O2 Delivery O2 Flow Rate FiO2 05/14/17 07:14 72 18 98 Nasal Cannula 2.0 28 05/14/17 07:10 28 05/14/17 07:10 75 18 95 Nasal Cannula 2.0 28 05/14/17 07:10 95 Nasal Cannula 2.0 28 05/14/17 07:10 Nasal Cannula 2.0 28 05/14/17 04:00 97.7 76 18 124/78 97 05/14/17 02:25 74 18 99 Nasal Cannula 2.0 28 05/14/17 02:15 72 20 97 Nasal Cannula 2.0 28 05/14/17 00:00 Nasal Cannula 2.0 05/14/17 00:00 97.0 74 18 96/64 98 Room Air 05/13/17 23:53 75 20 98 Nasal Cannula 2.0 28 05/13/17 23:43 73 22 96 Nasal Cannula 2.0 28 05/13/17 20:29 66 117/69 05/13/17 20:07 Nasal Cannula 2.0 28 05/13/17 20:06 97 Nasal Cannula 2.0 28 05/13/17 20:00 Nasal Cannula 2.0 05/13/17 20:00 97.2 66 20 117/69 96 05/13/17 19:59 80 20 98 Nasal Cannula 2.0 28 05/13/17 19:51 77 22 97 Nasal Cannula 2.0 28 05/13/17 16:15 97.3 87 18 119/78 97 Nasal Cannula 2.0 05/13/17 15:43 84 16 99 Nasal Cannula 2.0 28 05/13/17 15:17 82 16 98 Nasal Cannula 2.0 28 05/13/17 12:15 97.1 95 19 133/78 97 Nasal Cannula 2.0 05/13/17 11:05 92 20 96 Nasal Cannula 2.0 28 05/13/17 10:59 99 18 97 Nasal Cannula 2.0 28 05/13/17 08:29 109 05/13/17 08:29 109 127/76 05/13/17 08:15 97.9 109 22 127/76 99 Nasal Cannula 2.0 Intake and Output 05/13/17 05/14/17 19:00 07:00 Intake Total 80 ml 1373.750 ml Output Total 800 ml Balance -720 ml 1373.750 ml Free Water 30 ml 60 ml IV Total 763.750 ml Tube Feeding 50 ml 550 ml Output Urine Total 800 ml # Voids 4 4 # Bowel Movements 1 2 Laboratory Tests 05/13/17 10:55: Vancomycin Level Trough 15.8H 05/14/17 05:09: White Blood Count [Pending], Red Blood Count [Pending], Hemoglobin [Pending], Hematocrit [Pending], Mean Corpuscular Volume [Pending], Mean Corpuscular Hemoglobin [Pending], Mean Corpuscular Hemoglobin Concent [Pending], Red Cell Distribution Width [Pending], Platelet Count [Pending], Mean Platelet Volume [ Pending], Neutrophils (%) (Auto) [Pending], Lymphocytes (%) (Auto) [Pending], Monocytes (%) (Auto) [Pending], Eosinophils (%) (Auto) [Pending], Basophils (%) (Auto) [Pending], Sodium Level [Pending], Potassium Level [Pending], Chloride Level [Pending], Carbon Dioxide Level [Pending], Blood Urea Nitrogen [Pending], Creatinine [Pending], Estimat Glomerular Filtration Rate [Pending], Glucose Level [Pending], Calcium Level [Pending] Height (Feet): 5 Height (Inches): 5.00 Weight (Pounds): 140 General Appearance: no apparent distress EENT: normal ENT inspection Neck: supple Cardiovascular: normal rate Respiratory/Chest: decreased breath sounds Abdomen: normal bowel sounds, non tender, soft Extremities: non-tender ROSE MILLER May 14, 2017 07:56
[2017-05-14 08:02] LABS: BASOPHILS % (AUTO) 0.6 % (0.0-2.0); EOSINOPHILS % (AUTO) 2.4 % (0.0-3.0); LYMPHOCYTES % (AUTO) 23.6 % (20.0-45.0); MEAN CORPUSCULAR HEMOGLOBIN 32.1 PG (27.0-31.0); MEAN CORPUSCULAR HGB CONC 33.5 G/DL (32.0-36.0); MEAN CORPUSCULAR VOLUME 96 FL (80-99); MEAN PLATELET VOLUME 8.8 FL (6.5-10.1); MONOCYTES % (AUTO) 12.1 % (1.0-10.0); NEUTROPHILS % (AUTO) 61.3 % (45.0-75.0); PLATELET COUNT 213 K/UL (150-450); RED BLOOD COUNT 4.06 M/UL (4.70-6.10); RED CELL DISTRIBUTION WIDTH 11.3 % (11.6-14.8); WHITE BLOOD COUNT 7.1 K/UL (4.8-10.8)
[2017-05-14 08:24] LABS: ANION GAP 0 mmol/L (5-15); CALCIUM 7.9 MG/DL (8.5-10.1); CARBON DIOXIDE 36 MMOL/L (21-32); CHLORIDE 104 MMOL/L (98-107); CREATININE 0.6 MG/DL (0.55-1.30); SODIUM 140 MMOL/L (136-145)
[2017-05-14] MEDS: Digoxin 0.125mg tab GT SCH (08:39)
[2017-05-14] MEDS: Aspirin Baby 81mg GT SCH (08:39)
--- NOTE | 2017-05-14 09:26 | General Progress Note ---
Assessment/Plan Problem List: (1) Dehydration ICD Codes: E86.0 - Dehydration SNOMED: 82311119 (2) G-tube site cellulitis ICD Codes: K94.22 - Gastrostomy infection; L03.319 - Cellulitis of trunk, unspecified SNOMED: 895109262, 238055890 Assessment/Plan gave dc order if ok w dr shepard and dr harris no diarrhea afebrile Subjective ROS Limited/Unobtainable: Yes Allergies: Coded Allergies: No Known Allergies (Unverified , 04/04/14) Objective Last 24 Hour Vital Signs Date Time Temp Pulse Resp B/P (MAP) Pulse Ox O2 Delivery O2 Flow Rate FiO2 05/14/17 08:39 78 05/14/17 08:39 78 109/80 05/14/17 07:55 97.8 78 20 109/80 100 05/14/17 07:14 72 18 98 Nasal Cannula 2.0 28 05/14/17 07:10 28 05/14/17 07:10 75 18 95 Nasal Cannula 2.0 28 05/14/17 07:10 95 Nasal Cannula 2.0 28 05/14/17 07:10 Nasal Cannula 2.0 28 05/14/17 04:00 97.7 76 18 124/78 97 05/14/17 02:25 74 18 99 Nasal Cannula 2.0 28 05/14/17 02:15 72 20 97 Nasal Cannula 2.0 28 05/14/17 00:00 Nasal Cannula 2.0 05/14/17 00:00 97.0 74 18 96/64 98 Room Air 05/13/17 23:53 75 20 98 Nasal Cannula 2.0 28 05/13/17 23:43 73 22 96 Nasal Cannula 2.0 28 05/13/17 20:29 66 117/69 05/13/17 20:07 Nasal Cannula 2.0 28 05/13/17 20:06 97 Nasal Cannula 2.0 28 05/13/17 20:00 Nasal Cannula 2.0 05/13/17 20:00 97.2 66 20 117/69 96 05/13/17 19:59 80 20 98 Nasal Cannula 2.0 28 05/13/17 19:51 77 22 97 Nasal Cannula 2.0 28 05/13/17 16:15 97.3 87 18 119/78 97 Nasal Cannula 2.0 05/13/17 15:43 84 16 99 Nasal Cannula 2.0 28 05/13/17 15:17 82 16 98 Nasal Cannula 2.0 28 05/13/17 12:15 97.1 95 19 133/78 97 Nasal Cannula 2.0 05/13/17 11:05 92 20 96 Nasal Cannula 2.0 28 05/13/17 10:59 99 18 97 Nasal Cannula 2.0 28 Intake and Output 05/13/17 05/14/17 19:00 07:00 Intake Total 80 ml 1373.750 ml Output Total 800 ml Balance -720 ml 1373.750 ml Free Water 30 ml 60 ml IV Total 763.750 ml Tube Feeding 50 ml 550 ml Output Urine Total 800 ml # Voids 4 4 # Bowel Movements 1 2 Laboratory Tests 05/13/17 10:55: Vancomycin Level Trough 15.8H 05/14/17 05:09: White Blood Count 7.1, Red Blood Count 4.06L, Hemoglobin 13.0L, Hematocrit 38.8L , Mean Corpuscular Volume 96, Mean Corpuscular Hemoglobin 32.1H, Mean Corpuscular Hemoglobin Concent 33.5, Red Cell Distribution Width 11.3L, Platelet Count 213, Mean Platelet Volume 8.8, Neutrophils (%) (Auto) 61.3, Lymphocytes (%) (Auto) 23.6, Monocytes (%) (Auto) 12.1H, Eosinophils (%) (Auto) 2.4, Basophils (%) (Auto) 0.6, Sodium Level 140, Potassium Level 4.0, Chloride Level 104, Carbon Dioxide Level 36H, Anion Gap 0L, Blood Urea Nitrogen 13, Creatinine 0.6, Estimat Glomerular Filtration Rate , Glucose Level 139H, Calcium Level 7.9L Height (Feet): 5 Height (Inches): 5.00 Weight (Pounds): 140 Jama Figueroa MD May 14, 2017 09:26
--- NOTE | 2017-05-14 10:37 | Infectious Diseases Prog Note ---
Assessment/Plan Assessment/Plan antibiotics : vancomycin iv, zosyn A 1. GT site cellulitis 2. DM 3. Parkinsons disease 4. dementia P 1. d/c iv vancomycin, zosyn 2. start and continue GT doxycycline 3 more days 3. will follow up cultures Subjective ROS Limited/Unobtainable: Yes Allergies: Coded Allergies: No Known Allergies (Unverified , 04/04/14) Objective Vital Signs Last 24 Hour Vital Signs Date Time Temp Pulse Resp B/P (MAP) Pulse Ox O2 Delivery O2 Flow Rate FiO2 05/14/17 08:39 78 05/14/17 08:39 78 109/80 05/14/17 07:55 97.8 78 20 109/80 100 05/14/17 07:14 72 18 98 Nasal Cannula 2.0 28 05/14/17 07:10 28 05/14/17 07:10 75 18 95 Nasal Cannula 2.0 28 05/14/17 07:10 95 Nasal Cannula 2.0 28 05/14/17 07:10 Nasal Cannula 2.0 28 05/14/17 04:00 97.7 76 18 124/78 97 05/14/17 02:25 74 18 99 Nasal Cannula 2.0 28 05/14/17 02:15 72 20 97 Nasal Cannula 2.0 28 05/14/17 00:00 Nasal Cannula 2.0 05/14/17 00:00 97.0 74 18 96/64 98 Room Air 05/13/17 23:53 75 20 98 Nasal Cannula 2.0 28 05/13/17 23:43 73 22 96 Nasal Cannula 2.0 28 05/13/17 20:29 66 117/69 05/13/17 20:07 Nasal Cannula 2.0 28 05/13/17 20:06 97 Nasal Cannula 2.0 28 05/13/17 20:00 Nasal Cannula 2.0 05/13/17 20:00 97.2 66 20 117/69 96 05/13/17 19:59 80 20 98 Nasal Cannula 2.0 28 05/13/17 19:51 77 22 97 Nasal Cannula 2.0 28 05/13/17 16:15 97.3 87 18 119/78 97 Nasal Cannula 2.0 05/13/17 15:43 84 16 99 Nasal Cannula 2.0 28 05/13/17 15:17 82 16 98 Nasal Cannula 2.0 28 05/13/17 12:15 97.1 95 19 133/78 97 Nasal Cannula 2.0 05/13/17 11:05 92 20 96 Nasal Cannula 2.0 28 05/13/17 10:59 99 18 97 Nasal Cannula 2.0 28 Height (Feet): 5 Height (Inches): 5.00 Weight (Pounds): 140 Respiratory/Chest: lungs clear Cardiovascular: normal rate, regular rhythm, no gallop/murmur Abdomen: soft, non tender, other - Gt site erythema Extremities: no edema Laboratory Tests Test 05/13/17 10:55 05/14/17 05:09 Vancomycin Level Trough 15.8 ug/mL (5.0-12.0) H White Blood Count 7.1 K/UL (4.8-10.8) Red Blood Count 4.06 M/UL (4.70-6.10) L Hemoglobin 13.0 G/DL (14.2-18.0) L Hematocrit 38.8 % (42.0-52.0) L Mean Corpuscular Volume 96 FL (80-99) Mean Corpuscular Hemoglobin 32.1 PG (27.0-31.0) H Mean Corpuscular Hemoglobin Concent 33.5 G/DL (32.0-36.0) Red Cell Distribution Width 11.3 % (11.6-14.8) L Platelet Count 213 K/UL (150-450) Mean Platelet Volume 8.8 FL (6.5-10.1) Neutrophils (%) (Auto) 61.3 % (45.0-75.0) Lymphocytes (%) (Auto) 23.6 % (20.0-45.0) Monocytes (%) (Auto) 12.1 % (1.0-10.0) H Eosinophils (%) (Auto) 2.4 % (0.0-3.0) Basophils (%) (Auto) 0.6 % (0.0-2.0) Sodium Level 140 MMOL/L (136-145) Potassium Level 4.0 MMOL/L (3.5-5.1) Chloride Level 104 MMOL/L (98-107) Carbon Dioxide Level 36 MMOL/L (21-32) H Anion Gap 0 mmol/L (5-15) L Blood Urea Nitrogen 13 mg/dL (7-18) Creatinine 0.6 MG/DL (0.55-1.30) Estimat Glomerular Filtration Rate mL/min (>60) Glucose Level 139 MG/DL (74-106) H Calcium Level 7.9 MG/DL (8.5-10.1) JAEL VIGIL May 14, 2017 10:37
[2017-05-14] MEDS ORDERED: VIBRAMYCIN100 MG GT (10:45)
[2017-05-14 11:32] VITALS: BP 129/79
--- NOTE | 2017-05-14 11:39 | General Surgery Progress Note ---
General Surgery-Progress Note Subjective Procedure Performed g tube replacement Symptoms: improved, tolerating diet, passing flatus Additional Comments no acute events. doing well. new g tube functional. no more oozing or bleeding around g tube site. Objective Last 24 Hour Vital Signs Date Time Temp Pulse Resp B/P (MAP) Pulse Ox O2 Delivery O2 Flow Rate FiO2 05/14/17 11:32 97.7 82 20 129/79 99 05/14/17 10:36 71 16 96 Nasal Cannula 2.0 28 05/14/17 10:36 Nasal Cannula 05/14/17 08:39 78 05/14/17 08:39 78 109/80 05/14/17 07:55 97.8 78 20 109/80 100 05/14/17 07:14 72 18 98 Nasal Cannula 2.0 28 05/14/17 07:10 28 05/14/17 07:10 75 18 95 Nasal Cannula 2.0 28 05/14/17 07:10 95 Nasal Cannula 2.0 28 05/14/17 07:10 Nasal Cannula 2.0 28 05/14/17 04:00 97.7 76 18 124/78 97 05/14/17 02:25 74 18 99 Nasal Cannula 2.0 28 05/14/17 02:15 72 20 97 Nasal Cannula 2.0 28 05/14/17 00:00 Nasal Cannula 2.0 05/14/17 00:00 97.0 74 18 96/64 98 Room Air 05/13/17 23:53 75 20 98 Nasal Cannula 2.0 28 05/13/17 23:43 73 22 96 Nasal Cannula 2.0 28 05/13/17 20:29 66 117/69 05/13/17 20:07 Nasal Cannula 2.0 28 05/13/17 20:06 97 Nasal Cannula 2.0 28 05/13/17 20:00 Nasal Cannula 2.0 05/13/17 20:00 97.2 66 20 117/69 96 05/13/17 19:59 80 20 98 Nasal Cannula 2.0 28 05/13/17 19:51 77 22 97 Nasal Cannula 2.0 28 05/13/17 16:15 97.3 87 18 119/78 97 Nasal Cannula 2.0 05/13/17 15:43 84 16 99 Nasal Cannula 2.0 28 05/13/17 15:17 82 16 98 Nasal Cannula 2.0 28 05/13/17 12:15 97.1 95 19 133/78 97 Nasal Cannula 2.0 I&O Intake and Output 05/13/17 05/14/17 19:00 07:00 Intake Total 80 ml 1373.750 ml Output Total 800 ml Balance -720 ml 1373.750 ml Free Water 30 ml 60 ml IV Total 763.750 ml Tube Feeding 50 ml 550 ml Output Urine Total 800 ml # Voids 4 4 # Bowel Movements 1 2 Dressing: dry Wound: clean Cardiovascular: RSR Respiratory: clear Abdomen: soft, non-tender, present bowel sounds Extremities: no tenderness Laboratory Tests Test 05/14/17 05:09 White Blood Count 7.1 K/UL (4.8-10.8) Red Blood Count 4.06 M/UL (4.70-6.10) L Hemoglobin 13.0 G/DL (14.2-18.0) L Hematocrit 38.8 % (42.0-52.0) L Mean Corpuscular Volume 96 FL (80-99) Mean Corpuscular Hemoglobin 32.1 PG (27.0-31.0) H Mean Corpuscular Hemoglobin Concent 33.5 G/DL (32.0-36.0) Red Cell Distribution Width 11.3 % (11.6-14.8) L Platelet Count 213 K/UL (150-450) Mean Platelet Volume 8.8 FL (6.5-10.1) Neutrophils (%) (Auto) 61.3 % (45.0-75.0) Lymphocytes (%) (Auto) 23.6 % (20.0-45.0) Monocytes (%) (Auto) 12.1 % (1.0-10.0) H Eosinophils (%) (Auto) 2.4 % (0.0-3.0) Basophils (%) (Auto) 0.6 % (0.0-2.0) Sodium Level 140 MMOL/L (136-145) Potassium Level 4.0 MMOL/L (3.5-5.1) Chloride Level 104 MMOL/L (98-107) Carbon Dioxide Level 36 MMOL/L (21-32) H Anion Gap 0 mmol/L (5-15) L Blood Urea Nitrogen 13 mg/dL (7-18) Creatinine 0.6 MG/DL (0.55-1.30) Estimat Glomerular Filtration Rate mL/min (>60) Glucose Level 139 MG/DL (74-106) H Calcium Level 7.9 MG/DL (8.5-10.1) L Plan Problems: (1) G-tube site cellulitis Assessment & Plan: 77M with g tube site cellulitis. no abscess noted. irritation from g tube pressure noted. no active drainage but some mild serosang on dressings likely from recent manipulation. GI note reviewed. had bleeding earlier that required cauterization. erythema/cellulitis improved since pressure removed. g tube replaced 05/13/2017 and since no bleeding or oozing. new tube functional feeds as tolerated please flush tube after each use dressings prn okay to d/c from surgical standpoint thank you for this consultation. will follow with you. Zeke Simon May 14, 2017 11:39
--- NOTE | 2017-05-14 11:55 | Diagnostic Imaging Report ---
Indication: Shortness of breath Technique: CT of the chest obtained utilizing automated exposure control without intravenous contrast. Axial, sagittal and coronal reformats. CT dose: Total DLP 537.72 mGycm; CTDI vol 16.29 mGy Comparison: Correlation made to prior chest radiograph. Findings: Images are degraded by respiratory motion. There are apparent tree-in-bud opacifications are noted bilaterally, most pronounced in the left lower lobe. There are scattered subcentimeter nodular densities in the left lung. For example a 5 mm nodule in the left lower lobe just posterior to the fissure (series 4 image 30) and a 4 mm nodular density in the left lower lobe (series 4 image #29). The largest nodule is in the superior segment of the left lower lobe and measures up to 7 mm (series 4 image #21). There may be some mild peribronchial thickening. Similar findings are seen to a lesser degree on the right. There is dependent bibasilar atelectasis. There is no pneumothorax. Heart is normal in size. There is a small pericardial effusion. The thoracic aorta is normal in caliber with moderate to severe calcification of the arch. Small mediastinal lymph nodes are noted and thought to be reactive in etiology. These do not meet size criteria for pathologic enlargement at this time. A 1 cm nodule with peripheral calcifications noted in the inferior left thyroid lobe. There is a punctate calcification in the liver which may be sequela of prior infection, trauma or granulomatous exposure. Oral contrast is noted within the colon. A gastrostomy tube is in place. There are multilevel degenerative changes of the thoracic spine with anterior compression deformity of the T12 vertebral body with focal kyphosis at this level. Impression: Limited exam due to respiratory motion. Bilateral tree-in-bud opacities, most pronounced in the left lung, with scattered subcentimeter nodules on the left measuring up to 7 mm as above. These findings may be infectious or inflammatory etiology, including fungal, mycobacterial or atypical infections. The possibility of malignancy is not entirely excluded. Clinical correlation and follow-up exam recommended. Small mediastinal lymph nodes may be reactive in etiology. Small pericardial effusion. 1 cm low-attenuation thyroid nodule with peripheral calcification. Age indeterminate anterior compression deformity of the T12 vertebral body. Additional findings as above. The CT scanner at [facility] is accredited by the [employer] and the scans are performed using protocols designed to limit radiation exposure to as low as reasonably achievable to attain images of sufficient resolution adequate for diagnostic evaluation.
--- NOTE | 2017-05-14 21:18 | General Progress Note ---
Assessment/Plan Assessment/Plan ASSESSMENT AND RECOMMENDATIONS: 1. Anemia secondary to gastrointestinal bleed. Current hemoglobin 13.2. 2. Gastrostomy tube site cellulitis, has been started on vancomycin. Continue to closely monitor. 3. Respiratory failure, likely due to aspiration pneumonia. 4. Gastrostomy tube 5. Pulm outpatient, re-evaluate ct chest for lung nodule Subjective Allergies: Coded Allergies: No Known Allergies (Unverified , 04/04/14) All Systems: reviewed and negative except above Objective Last 24 Hour Vital Signs Date Time Temp Pulse Resp B/P (MAP) Pulse Ox O2 Delivery O2 Flow Rate FiO2 05/14/17 15:32 75 16 95 Nasal Cannula 2.0 28 05/14/17 15:32 Nasal Cannula 05/14/17 11:32 97.7 82 20 129/79 99 05/14/17 10:36 71 16 96 Nasal Cannula 2.0 28 05/14/17 10:36 Nasal Cannula 05/14/17 08:39 78 05/14/17 08:39 78 109/80 05/14/17 07:55 97.8 78 20 109/80 100 05/14/17 07:14 72 18 98 Nasal Cannula 2.0 28 05/14/17 07:10 28 05/14/17 07:10 75 18 95 Nasal Cannula 2.0 28 05/14/17 07:10 95 Nasal Cannula 2.0 28 05/14/17 07:10 Nasal Cannula 2.0 28 05/14/17 04:00 97.7 76 18 124/78 97 05/14/17 02:25 74 18 99 Nasal Cannula 2.0 28 05/14/17 02:15 72 20 97 Nasal Cannula 2.0 28 05/14/17 00:00 Nasal Cannula 2.0 05/14/17 00:00 97.0 74 18 96/64 98 Room Air 05/13/17 23:53 75 20 98 Nasal Cannula 2.0 28 05/13/17 23:43 73 22 96 Nasal Cannula 2.0 28 Intake and Output 05/13/17 05/14/17 19:00 07:00 Intake Total 80 ml 1373.750 ml Output Total 800 ml Balance -720 ml 1373.750 ml Free Water 30 ml 60 ml IV Total 763.750 ml Tube Feeding 50 ml 550 ml Output Urine Total 800 ml # Voids 4 4 # Bowel Movements 1 2 Laboratory Tests 05/14/17 05:09: White Blood Count 7.1, Red Blood Count 4.06L, Hemoglobin 13.0L, Hematocrit 38.8L , Mean Corpuscular Volume 96, Mean Corpuscular Hemoglobin 32.1H, Mean Corpuscular Hemoglobin Concent 33.5, Red Cell Distribution Width 11.3L, Platelet Count 213, Mean Platelet Volume 8.8, Neutrophils (%) (Auto) 61.3, Lymphocytes (%) (Auto) 23.6, Monocytes (%) (Auto) 12.1H, Eosinophils (%) (Auto) 2.4, Basophils (%) (Auto) 0.6, Sodium Level 140, Potassium Level 4.0, Chloride Level 104, Carbon Dioxide Level 36H, Anion Gap 0L, Blood Urea Nitrogen 13, Creatinine 0.6, Estimat Glomerular Filtration Rate , Glucose Level 139H, Calcium Level 7.9L Height (Feet): 5 Height (Inches): 5.00 Weight (Pounds): 140 General Appearance: no apparent distress EENT: normal ENT inspection Neck: normal alignment Cardiovascular: normal peripheral pulses Extremities: normal range of motion Matt Mauricio May 14, 2017 21:18
--- NOTE | 2017-05-18 21:18 | Discharge Summary ---
Discharge Summary Hospital Course Date of Admission May 10, 2017 at 16:46 Date of Discharge May 14, 2017 at 14:20 Admitting Diagnosis GTUBE SITE BLEEDING HPI Luis E Yanes is a 77 year old male who was admitted on May 10, 2017 at 16:46 for Gastric Tube Site Bleeding Hospital Course dc summary#[id number] Discharge Medications Continued Medications: Aspirin* (Aspirin*) 81 Mg Tab.chew 81 MG GT DAILY Atorvastatin Calcium* (Lipitor*) 10 Mg Tablet 10 MG GT BEDTIME Carbidopa/Levodopa (Carbidopa-Levodopa 25-250 Tab) 1 Each Tablet 1 EACH GT TID, TAB Carvedilol* (Carvedilol*) 3.125 Mg Tablet 3.125 MG GT EVERY 12 HOURS for HOLD IF SBP <100 OR HR<60 Digoxin* (Digoxin*) 125 Mcg Tablet 125 MCG GT DAILY for HOLD IF HR < 60 Donepezil Hcl* (Aricept*) 10 Mg Tablet 10 MG GT QHS, TAB Doxycycline Hyclate* (Vibramycin*) 100 Mg Capsule 100 MG GT EVERY 12 HOURS for 3 Days, CAP 0 Refills Lactobacillus Acidophilus (Acidophilus Lactobacillus) 1 Each Capsule 1 TAB GT DAILY Metformin Hcl* (Metformin Hcl*) 500 Mg Tablet 500 MG GT TWICE A DAY Discharge Condition Upon Discharge: stable Discharge Disposition Patient was discharged to SNF/Subacute Facility(03) Discharge Diagnoses: Discharge Instructions Discharge Instructions Special Instructions I have been assigned to complete a D/C Summary on this account. I was not involved in the patient management Deena Mcarthur NP ([place]) May 18, 2017 21:18
--- NOTE | 2017-05-19 00:03 | Diagnostic Imaging Report ---
APPROVED REPORT CPT Code: 50485 Present Symptoms Comments: R/O DVT Technically difficult study (bilateral contractures of the knee). BILATERAL: Imaging reveals a patent deep venous system bilaterally. There is no evidence of thrombus within the femoral, popliteal or tibial segments. The greater saphenous veins are also within normal limits. Doppler indicates normal spontaneous flow within these segments.
--- NOTE | 2017-05-19 09:15 | Discharge Summary 2 SIG ---
DATE OF ADMISSION: 05/10/2017 DATE OF DISCHARGE: 05/14/2017 REASON FOR ADMISSION: 77 years old male with history of diabetes, hypertension, dysphagia, G-tube, Parkinson disease, and dementia, was sent from the half-way facility due to infection of the G-tube site. Upon evaluation in the emergency department, the patient found to have cellulitis of the G-tube site and was admitted for further management. Laboratory workup revealed no leukocytosis, stable hemoglobin and hematocrit, no major metabolic abnormality. HOSPITAL COURSE: The patient was admitted. GI, Pulmonary and Infectious Diseases consults were requested. Chest x-ray revealed possible 1 cm nodule in the mid to lower left lung. Supplemental oxygen and pulmonary toilet were provided as needed. The patient likely have aspiration and possible pneumonia. The patient was on empiric antibiotics for possible pneumonia and cellulitis. Infectious Disease specialist clsoely followed. GI seen and evaluated the patient. The patient needed surgical replacement of G-tube. Surgery consult was requested. The patient subsequently undergone G-tube replacement on 05/13/2017. Tube feeding was restarted. Strict aspiration precautions were maintained. The patient tolerated G-tube feeding. Per surgery evaluation after GT feeding started: G-tube was functional, no further oozing or bleeding. GI specialist recommended to continue tube feeding and G-tube site care three times a day and as needed to keep G-tube dry. Bowel regimen was instituted. After cauterization, no further bleeding or oozing. Core Setter seen and evaluated the patient. Hemoglobin and hematocrit remained stable. Monitor counts at the facility. Blood sugar was managed with sliding scale of insulin and was stable. Blood pressure was managed with current regimen. The patient was initially on the IV fluids. BUN from initial 28 down to 14 and creatinine down to 0.6. CT of the chest was done due to the finding of possible 1 cm nodule on the chest x-ray. CT chest revealed bilateral tree-in-bud opacity, most pronounced in the left lung with scattered subcentimeter nodules on the left measuring up to 7 mm. This finding likely represented infectious or inflammatory etiology, but the possibility of malignancy was not entirely excluded. Clinical follow up was recommended. The patient will need to repeat CT of the chest in 3 to 6 months. The patient was stable for discharge back to half-way facility. FINAL DIAGNOSES: 1. Gastrostomy tube site cellulitis. 2. Status post gastrostomy tube replacement. 3. Aspiration, possible pneumonia. 4. Dysphagia. 5. Dehydration. 6. Hypertension. 7. Scattered subcentimeter pulmonary nodules left lung. 8. Parkinson disease. 9. Dementia. 10. Diabetes. 11. Anemia secondary to GI bleeding. DISCHARGE MEDICATIONS: See medication reconciliation list. DISCHARGE INSTRUCTIONS: The patient discharged to half-way facility. Follow up with medical doctor at the facility. CT of the chest to be repeated in 3 to 6 months. Jama Figueroa M.D. I have been assigned to dictate discharge summary on this account and I was not involved in the patient's management. Deena BlueConey Island HospitalYakelin N.PGinger DR: AMRIK JOB#: [id number] CC: MICHAEL
== END 2017-05-14 14:20 | DRG 393 ==
LOC: EDBD 14:48 → EMR 16:00 → 4E 16:46 → OBSVTOIN 16:46 → EDBEDREQ 17:50 → 4E 05-11 01:08
PROC: 0D20XUZ Change Feeding Device in Upper Intestinal Tract, External Approach (ICD-10-PCS; principal; 2017-05-13)
DX: K94.29 Other complications of gastrostomy (principal); J69.0 Pneumonitis due to inhalation of food and vomit; F03.90 Unspecified dementia, unspecified severity, without behavioral disturbance, psychotic disturbance, mood disturbance, and anxiety; I10 Essential (primary) hypertension; E11.9 Type 2 diabetes mellitus without complications; D50.0 Iron deficiency anemia secondary to blood loss (chronic); L03.311 Cellulitis of abdominal wall; K94.22 Gastrostomy infection; G20 Parkinson's disease; R13.10 Dysphagia, unspecified; E86.0 Dehydration; K94.23 Gastrostomy malfunction; K94.21 Gastrostomy hemorrhage; Y83.3 Surgical operation with formation of external stoma as the cause of abnormal reaction of the patient, or of later complication, without mention of misadventure at the time of the procedure; E78.5 Hyperlipidemia, unspecified; R62.7 Adult failure to thrive
CPT/HCPCS: 36415; 71010; 71250; 74000; 80048; 80053; 80202; 82248; 82728; 82962; 83690; 83735; 84100; 85025; 87081; 93970; 94640; 94664; 94760; 99285; J1815; J7620

== ENCOUNTER 2017-05-15 15:54 | Emergency (ER) | payer OTHER ==
[~2017-05-15] VITALS: Ht 152.4 cm; Wt 72.6 kg
[~2017-05-15 15:54] MED LIST changes: +ACIDOPHILUS LA1 EAC1 GT; +ASPIRIN81 MG GT; +ASPIRIN81 MG ORAL; +ATORVASTATIN CA10 MG GT; +DIGOXIN125 MCG GT; +DONEPEZIL HCL10 MG GT; +METFORMIN HCL500 M1 GT; +VIBRAMYCIN100 MG GT
--- NOTE | 2017-05-15 16:26 | Emergency Room Report ---
History of Present Illness General Chief Complaint: Malfunctioning Gastric Tube Source: Medical Record, EMS Present Illness HPI 69-year-old male, coming from [facility], bedbound nonverbal and with a gastrostomy tube, here for gastrostomy tube replacement No other history able to be obtained Allergies: Coded Allergies: No Known Allergies (Unverified , 04/04/14) Patient History Past Medical History: see triage record Past Surgical History: none Pertinent Family History: none Reviewed Nursing Documentation: PMH: Agreed, PSxH: Agreed Nursing Documentation-PMH Hx Hypertension: Yes Hx COPD: Yes - Pneumonia Hx Diabetes: Yes Hx Cancer: No Hx Gastrointestinal Problems: Yes History Of Psychiatric Problem: Yes - Dementia Hx Dementia: Yes Hx Parkinson's Disease: Yes Review of Systems All Other Systems: limited - nonverbal Physical Exam Vital Signs Date Time Temp Pulse Resp B/P (MAP) Pulse Ox O2 Delivery O2 Flow Rate FiO2 05/15/17 15:55 84 16 132/81 96 Room Air Sp02 EP Interpretation: reviewed, normal General Appearance: other - Chronically ill-appearing elderly male, bedbound nonverbal, not in distress Head: normocephalic, atraumatic Eyes: bilateral eye normal inspection, bilateral eye PERRL, bilateral eye EOMI ENT: normal ENT inspection, normal pharynx, normal voice, moist mucus membranes Neck: normal inspection, full range of motion, supple Respiratory: normal inspection, lungs clear, normal breath sounds, no respiratory distress, no retraction, no wheezing, chest symmetrical Cardiovascular #1: normal inspection, regular rate, rhythm, normal capillary refill Cardiovascular #2: 2+ radial (R), 2+ radial (L) Gastrointestinal: other - Abdomen with gastrostomy tube stoma, nontender abdomen nondistended Musculoskeletal: normal inspection, back normal, normal range of motion, non- tender Neurologic: other - nonverbal Psychiatric: other - nonverbal Skin: normal inspection, normal color, no rash, warm/dry, well hydrated, normal turgor Medical Decision Making Diagnostic Impression: Primary Impression: Malfunction of gastrostomy tube ER Course 77-year-old male, here for G-tube replacement Plan: Place G-tube, confirmation with x-ray ER course: A 16 Romanian gastrostomy tube was placed without any resistance Confirmed with x-ray Disposition: Patient is to be discharged to [facility] Please note that this Emergency Department Report was dictated using [employer] program teacher technology software, occasionally this can lead to erroneous entry secondary to interpretation by the dictation equipment Abd X-ray CXR: Ordered: Yes 1 view Indication: G tube replacement EP interpretation: Yes Interpretation: G tube in appropriate position Impression: G tube in appropriate position Electronically signed by Virginia Vance MD Last Vital Signs Date Time Temp Pulse Resp B/P (MAP) Pulse Ox O2 Delivery O2 Flow Rate FiO2 05/15/17 15:55 84 16 132/81 96 Room Air Disposition: XFER SNF Condition: Improved Patient Instructions: Gastrostomy Tube Home Guide, Adult Virginia Vance M.D. May 15, 2017 16:26
[2017-05-15 17:00] VITALS: BP 127/85
[2017-05-15 19:15] VITALS: BP 133/70
[2017-05-15 19:50] VITALS: BP 131/81
--- NOTE | 2017-05-16 10:06 | Diagnostic Imaging Report ---
Indication: Gastrostomy tube placement Technique: XRAY Abdomen 1v Comparison: 05/10/2017. Findings: There is a G-tube in the stomach. Contrast has been injected and fills the fundus of the stomach. Some contrast is also present in the colon from a previous injection. There is a right hip arthroplasty. Bowel gas pattern is nonobstructive. Impression: Gastrostomy tube in the stomach. Right hip arthroplasty.
== END 2017-05-15 19:50 ==
LOC: EDBD 15:54 → EMR 16:39
DX: K94.23 Gastrostomy malfunction (principal); Y83.3 Surgical operation with formation of external stoma as the cause of abnormal reaction of the patient, or of later complication, without mention of misadventure at the time of the procedure; Y92.129 Unspecified place in nursing home as the place of occurrence of the external cause; E11.9 Type 2 diabetes mellitus without complications; J44.9 Chronic obstructive pulmonary disease, unspecified; G20 Parkinson's disease; F02.80 Dementia in other diseases classified elsewhere, unspecified severity, without behavioral disturbance, psychotic disturbance, mood disturbance, and anxiety; I10 Essential (primary) hypertension; Z74.01 Bed confinement status
CPT/HCPCS: 43760; 74000; 99283; Q9963

== ENCOUNTER 2018-06-20 12:23 | Emergency (ER) | payer OTHER ==
[~2018-06-20] VITALS: Ht 157.5 cm; Wt 52.6 kg
--- NOTE | 2018-06-20 12:23 | NUR ---
ED Nurse Note: pt brought in by [facility] for gtube replacement, per EMS report, nursing staff found gtube next to pt around 10am today. unable to state which size of gtube. noted dressing on epigastric area with hole and redness. Pt vss, resp even and unlabored, will cont monitor. ERMD at bedside.
[2018-06-20] MEDS ORDERED: DIGOXIN250 MCG ORAL (12:33)
[2018-06-20] MEDS ORDERED: MULTIVITAMINS1 EAC8 ORAL (12:33)
[2018-06-20] MEDS ORDERED: SINEMET 25-1001 EAC1 ORAL (12:33)
[2018-06-20 12:35] VITALS: BP 136/76
--- NOTE | 2018-06-20 13:11 | NUR ---
ED Nurse Note: gtube flushed
--- NOTE | 2018-06-20 13:35 | NUR ---
ED Nurse Note: Patient is being discharged cleared by ERMD. discharge paper/instruction given to the ambulance personnel. patient left with ambulance. [facility] was called, reported to Mayra that the patient is going back.
[2018-06-20 14:06] VITALS: BP 136/76
--- NOTE | 2018-06-20 15:19 | Diagnostic Imaging Report ---
Indication: Post gastrostomy replacement Technique: Supine view of the abdomen after injection of water-soluble contrast into gastrostomy Comparison: 09/09/2016 Findings: Contrast opacifies the stomach. No contrast extravasation is demonstrated. The bowel gas pattern is unremarkable. No significant interim change Impression: Satisfactory position of gastrostomy tube
--- NOTE | 2018-06-20 16:53 | Emergency Room Report ---
History of Present Illness General Chief Complaint: Malfunctioning Gastric Tube Source: Medical Record, EMS Present Illness HPI Patient presents emergency department today with dislodged G-tube. Patient apparently stays at a [facility]dc at baseline is nonverbal requires G-tube to survive. G-tube was actually dislodged today. Patient was brought here further evaluation. G-tube apparently was dislodged this morning. No history of fever cough runny nose or other complaints. No history of vomiting.No other modifying factors. No other associated signs and symptoms. No other complaints were noted. Patient is nonverbal with history was obtained from medical records and from paramedics. Allergies: Coded Allergies: No Known Allergies (Unverified , 04/04/14) Patient History Past Medical History: DM, HTN, COPD, dementia Past Surgical History: other - G-tube Pertinent Family History: none Social History Narrative stays at fdc Reviewed Nursing Documentation: PMH: Agreed; PSxH: Agreed Nursing Documentation-PMH Hx Hypertension: Yes Hx COPD: Yes - Pneumonia Hx Diabetes: Yes Hx Cancer: No Hx Gastrointestinal Problems: Yes Hx Dementia: Yes Hx Parkinson's Disease: Yes Review of Systems All Other Systems: limited - Poor mental status Physical Exam Vital Signs Date Time Temp Pulse Resp B/P (MAP) Pulse Ox O2 Delivery O2 Flow Rate FiO2 06/20/18 12:15 98.1 72 20 136/76 94 Room Air Sp02 EP Interpretation: reviewed, normal General Appearance: thin Head: atraumatic Eyes: bilateral eye normal inspection ENT: normal ENT inspection, normal pharynx Neck: normal inspection, supple Respiratory: normal inspection, lungs clear Cardiovascular #1: regular rate, rhythm, no edema Gastrointestinal: normal inspection, normal bowel sounds, non tender, soft, no guarding, no hernia, other - Gastrostomy fistula in place Genitourinary: no CVA tenderness Musculoskeletal: normal inspection, back normal, normal range of motion Neurologic: normal inspection, alert, responsive, speech normal Skin: normal inspection, normal color, no rash Procedures Additional Procedure Procedure Narrative G-tube replacement procedure: G-tube stoma was prepped in the sterile manner. G-tube was gently introduced into the stoma until it was about 7 cm in. The G-tube balloon was inflated with 5 mL of sterile water. The G-tube was gently retracted and another 5 mL of sterile water was added. The G-tube was retracted until it could be retracted no further. Another 10 mL of sterile water was added. The G-tube was tacked in place at about 2-3 cm. There is no complications associated procedure. Placement was confirmed by x-ray as interpreted by radiology. Medical Decision Making Diagnostic Impression: Primary Impression: Malfunction of gastrostomy tube ER Course Patient presents emergency department today with a dislodged G-tube. Patient require replacement of G-tube. G-tube was replaced. KUB shows ET tube in good position. There is no comp lesions associated procedure. Given patient otherwise is at baseline will discharge patient back to [facility]dc further care. Other X-Ray Diagnostic Results Other X-Ray Diagnostic Results : X-Ray ordered: KUB # of Views/Limited Vs Complete: 1 View Indication: Other - G-tube placement EP Interpretation: No Impression: Other - Appropriate G-tube placement per radiolog Last Vital Signs Date Time Temp Pulse Resp B/P (MAP) Pulse Ox O2 Delivery O2 Flow Rate FiO2 06/20/18 14:06 98.1 72 20 136/76 94 Room Air Status: improved Disposition: HOME, SELF-CARE Condition: Stable Referrals: Robert Lawrence DO (PCP) Patient Instructions: Gastrostomy Tube Home Guide, Adult Darwin Conner MD Jun 20, 2018 16:53
== END 2018-06-20 13:35 ==
LOC: EDBD 12:23 → EMR 13:00
DX: K94.23 Gastrostomy malfunction (principal); Y83.3 Surgical operation with formation of external stoma as the cause of abnormal reaction of the patient, or of later complication, without mention of misadventure at the time of the procedure; Y92.129 Unspecified place in nursing home as the place of occurrence of the external cause; E11.9 Type 2 diabetes mellitus without complications; I10 Essential (primary) hypertension; J44.9 Chronic obstructive pulmonary disease, unspecified; G20 Parkinson's disease; F02.80 Dementia in other diseases classified elsewhere, unspecified severity, without behavioral disturbance, psychotic disturbance, mood disturbance, and anxiety
CPT/HCPCS: 74018; 99284